=== PATIENT | female | born 1975 | race Caucasian/White ===

== ENCOUNTER → 2016-09-14 | Outpatient (CLI) | payer OTHER ==
--- NOTE | 2016-09-14 11:45 | XR ---
EXAMINATION TYPE: XR foot complete LT DATE OF EXAM: 09/14/2016 11:38 AM CLINICAL HISTORY: pain TECHNIQUE: Frontal, lateral and oblique images of the left foot are obtained. COMPARISON: None. FINDINGS: There is no acute fracture/dislocation evident. The joint spaces appear within normal [place] its. The overlying soft tissue appears unremarkable. IMPRESSION: There is no acute fracture or dislocation. ICD 10 NO FRACTURE, INITIAL EVALUATION
--- NOTE | 2016-09-14 11:46 | XR ---
EXAMINATION TYPE: XR ankle complete LT DATE OF EXAM: 09/14/2016 11:38 AM COMPARISON: NONE HISTORY: Pain TECHNIQUE: 3 views of the left ankle are submitted for evaluation. FINDINGS: There is no evidence for fracture or dislocation. Ankle mortise is intact. Soft tissues are within normal limits. IMPRESSION: 1. No evidence for acute fracture.
== END | disposition home or self-care (01) ==
LOC: RADXRMAIN 11:15
PROVIDERS: ATTEND Family Medicine
DX: M25.572 Pain in left ankle and joints of left foot (principal)

== ENCOUNTER → 2016-11-26 | Outpatient (CLI) | payer OTHER ==
--- NOTE | 2016-11-26 12:49 | EST ---
DATE OF SERVICE: 11/26/2016 STRESS TEST INDICATION: Family history, chest pain. BASELINE HEART RATE: 63 BASELINE BLOOD PRESSURE: 107/59 MAXIMUM HEART RATE: 168 MAXIMUM BLOOD PRESSURE: 149/83 85% MPHR: 154 100% MPHR: 181 METS: 15.0 MAXIMUM STAGE REACHED: IV TOTAL EXERCISE TIME: 13:00 Baseline EKG shows sinus rhythm, normal axis, normal intervals. Patient exercised on Willem protocol for a total of 13 minutes achieving 15 METS, 92% of predicted maximum heart rate without chest pain or diagnostic ST segment depression. CONCLUSION: 1. Excellent exercise tolerance. 2. Negative stress test by EKG criteria. MTDD
--- NOTE | 2016-11-26 16:59 | ECHOF ---
Referral Reason:Z82.49 fa hx of ischemic heart dis MEASUREMENTS -------- HEIGHT: 165.1 cm WEIGHT: 69.4 kg BP: 115/78 RVIDd: 2.9 cm (< 3.3) IVSd: 1.0 cm (0.6 - 1.1) LVIDd: 4.7 cm (3.9 - 5.3) LVPWd: 0.9 cm (0.6 - 1.1) IVSs: 1.3 cm LVIDs: 3.3 cm LVPWs: 1.4 cm LA Diam: 3.2 cm (2.7 - 3.8) LAESV Index (A-L): 22.51 ml/m Ao Diam: 2.6 cm (2.0 - 3.7) AV Cusp: 1.8 cm (1.5 - 2.6) MV EXCURSION: 15.228 mm (> 18.000) MV EF SLOPE: 83 mm/s (70 - 150) EPSS: 0.9 cm MV E Hilario: 1.14 m/s MV DecT: 267 ms MV A Hilario: 0.93 m/s MV E/A Ratio: 1.22 RAP: 5.00 mmHg RVSP: 28.98 mmHg FINDINGS -------- Sinus rhythm. This was a technically good study. The left ventricular size is normal. Left ventricular wall thickness is normal. Overall left ventricular systolic function is normal with, an EF between 60 - 65 %. The right ventricle is normal in size and function. Normal LA size by volume 22+/-6 ml/m2. The right atrium is normal in size. The aortic valve is trileaflet, and appears structurally normal. No aortic stenosis or regurgitation. The mitral valve is normal. There is trace mitral regurgitation. Mild tricuspid regurgitation present. There is mild pulmonary hypertension. The right ventricular systolic pressure, as measured by Doppler, is 28.98mmHg. The pulmonic valve is normal. The aortic root size is normal. The pericardium is normal. CONCLUSIONS -------- 1. Sinus rhythm. 2. The mitral valve is normal. 3. There is trace mitral regurgitation. 4. Mild tricuspid regurgitation present. 5. There is mild pulmonary hypertension. 6. The right ventricular systolic pressure, as measured by Doppler, is 28.98mmHg. 7. The pulmonic valve is normal. 8. The aortic root size is normal. 9. The pericardium is normal. 10. This was a technically good study. 11. The left ventricular size is normal. 12. Left ventricular wall thickness is normal. 13. Overall left ventricular systolic function is normal with, an EF between 60 - 65 %. 14. The right ventricle is normal in size and function. 15. Normal LA size by volume 22+/-6 ml/m2. 16. The right atrium is normal in size. 17. The aortic valve is trileaflet, and appears structurally normal. No aortic stenosis or regurgitation. CARD GRINDER HELPER: Zayra Jaramillo RDCS
== END | disposition home or self-care (01) ==
LOC: RADNMMAIN 10:59
PROVIDERS: ATTEND Internal Medicine Clinical Cardiac Electrophysiology
DX: I08.1 Rheumatic disorders of both mitral and tricuspid valves (principal); I27.2 Other secondary pulmonary hypertension; Z82.49 Family history of ischemic heart disease and other diseases of the circulatory system
CPT/HCPCS: 93017; 93306

== ENCOUNTER 2017-07-16 21:49 | Emergency (ER) | payer OTHER ==
--- NOTE | 2017-07-16 22:18 | ED ---
General Adult HPI - General Chief complaint: Extremity Injury, Lower Stated complaint: poss blood clot Time Seen by Provider: 07/16/17 22:07 Source: patient, RN notes reviewed Mode of arrival: ambulatory Limitations: no limitations - History of Present Illness Initial comments: 41-year-old female presents for evaluation of right calf pain and concern for DVT. Patient states she has had burning pain in her right lateral calf and thigh throughout the day today. She is an avid runner, denies any injury or overuse known to her. No trauma. Patient is currently on control, she has a history of hypercholesterolemia. No recent travel or long trips. She denies fever or chills. Denies cough or shortness of breath. - Related Data Home Medications Medication Instructions Recorded Confirmed Atorvastatin Calcium [Lipitor] 10 mg PO HS 11/19/13 08/08/15 Azurette 1 tab PO DAILY 11/19/13 08/08/15 Lorcaserin HCl [Belviq] 10 mg PO BID 11/19/13 08/08/15 Niacin [Niacin ER] 500 mg PO HS 11/19/13 08/08/15 Iron(Dosage Unknown) 1 tab PO DAILY 01/01/14 08/08/15 Previous Rx's Medication Instructions Recorded Famotidine [Pepcid] 40 mg PO BID #30 tab 08/08/15 hydrOXYzine HCL [Atarax] 25 mg PO TID #30 tab 08/08/15 predniSONE 50 mg PO DAILY #5 tab 08/08/15 Allergies Allergy/AdvReac Type Severity Reaction Status Date / Time guaifenesin [From Mucinex] Allergy Anaphylaxis Verified 07/16/17 22:02 minocycline [Minocycline] Allergy Anaphylaxis Verified 07/16/17 22:02 mucus relief Allergy Anaphylaxis Uncoded 07/16/17 22:02 Review of Systems ROS Statement: Those systems with pertinent positive or pertinent negative responses have been documented in the HPI. ROS Other: All systems not noted in ROS Statement are negative. Past Medical History Past Medical History: Hyperlipidemia Additional Past Medical History / Comment(s): HX BLEEDING FROM RECTUM., History of Any Multi-Drug Resistant Organisms: None Reported Past Surgical History: Adenoidectomy, Tonsillectomy Additional Past Surgical History / Comment(s): LAPAROTOMY; LAPAROSCOPIES; colonoscopy and EGD 11/19/13, Past Anesthesia/Blood Transfusion Reactions: Motion Sickness Past Psychological History: No Psychological Hx Reported Smoking Status: Never smoker Past Alcohol Use History: Occasional Past Drug Use History: None Reported General Exam Limitations: no limitations General appearance: alert, in no apparent distress Head exam: Present: atraumatic, normocephalic Eye exam: Present: normal appearance, PERRL Neck exam: Present: normal inspection. Absent: tenderness, meningismus Respiratory exam: Present: normal lung sounds bilaterally. Absent: respiratory distress, wheezes Cardiovascular Exam: Present: regular rate, normal rhythm GI/Abdominal exam: Present: soft. Absent: distended, tenderness Extremities exam: Present: normal inspection, full ROM, normal capillary refill , other (Right lower extremity, DP and PT pulses 2+, popliteal pulses 2+, compartments are soft. No external signs of trauma.). Absent: pedal edema, calf tenderness Neurological exam: Present: alert, oriented X3, CN II-XII intact. Absent: motor sensory deficit, reflexes normal Psychiatric exam: Present: normal affect, normal mood Skin exam: Present: warm, dry, intact. Absent: cyanosis, diaphoretic Course Vital Signs 07/16/17 07/16/17 21:59 23:34 Temperature 98.1 F Pulse Rate 70 70 Respiratory 17 14 Rate Blood Pressure 142/75 109/62 O2 Sat by Pulse 100 99 Oximetry Medical Decision Making - Medical Decision Making 41-year-old female presenting with Tenderness, concern for DVT. Ultrasound is obtained, this is negative for DVT or any significant acute findings. Patient is reassured, she will elevate the lower extremity, take Motrin for pain, follow -up with her primary care physician. Return with any worsening or changing symptoms. Disposition Clinical Impression: Muscle strain Disposition: HOME SELF-CARE Condition: Good Instructions: Muscle Strain (ED) Referrals: José Mott DO [Primary Care Provider] - 1-2 days Time of Disposition: 00:36
--- NOTE | 2017-07-17 00:34 | US ---
EXAMINATION TYPE: US venous doppler duplex LE RT DATE OF EXAM: 07/17/2017 12:24 AM COMPARISON: NONE CLINICAL HISTORY: Pain. Right leg pain SIDE PERFORMED: Right TECHNIQUE: The lower extremity deep venous system is examined utilizing real time linear array sonog ben with graded compression, doppler sonography and color-flow sonography. VESSELS IMAGED: External Iliac Vein (EIV) Common Femoral Vein Deep Femoral Vein Greater Saphenous Vein * Femoral Vein Popliteal Vein Small Saphenous Vein * Proximal Calf Veins (* superficial vessels) Right Leg: Appears negative for DVT, scanned right lateral lower leg area of concern: appears wnl IMPRESSION: No evidence of deep venous thrombosis in the right leg. No solid or cystic mass identifie d in the calf.
[2017-07-17 00:40] VITALS: BP 109/68; PULSE 68; RESP 18; TEMP 98.3
== END 2017-07-17 00:43 | disposition home or self-care (01) ==
LOC: EC 21:49
DX: S86.911A Strain of unspecified muscle(s) and tendon(s) at lower leg level, right leg, initial encounter (principal); E78.5 Hyperlipidemia, unspecified; Z79.3 Long term (current) use of hormonal contraceptives; Z79.899 Other long term (current) drug therapy; Z88.1 Allergy status to other antibiotic agents; Z88.8 Allergy status to other drugs, medicaments and biological substances; X58.XXXA Exposure to other specified factors, initial encounter
CPT/HCPCS: 99283

== ENCOUNTER 2017-09-06 09:25 | Emergency (ER) | payer OTHER ==
[2017-09-06 09:32] VITALS: RESP 18
--- NOTE | 2017-09-06 09:48 | ED ---
General Adult HPI - General Chief complaint: Chest Pain Stated complaint: Arm numbness and high heart zana Time Seen by Provider: 09/06/17 09:37 Source: patient, RN notes reviewed, old records reviewed Mode of arrival: wheelchair - History of Present Illness Initial comments: 41-year-old female presents for evaluation of chest pain. Patient's pain began yesterday evening while at rest, with central chest pain with some radiation to her left upper chest. She did have some dyspnea associated with this. She had left arm numbness and tingling. No weakness in the left arm. Patient states the pain did light up, this morning while at work she developed palpitations feeling like her heart was racing. She denied pain at that time. Had persistent left arm numbness. She admits she did feel anxious during this episode. She has no history of cardiac disease. No history DVT or PE. She has been eating and drinking normally. No history nausea vomiting or diarrhea. No diaphoresis. - Related Data Home Medications Medication Instructions Recorded Confirmed Atorvastatin Calcium [Lipitor] 10 mg PO HS 11/19/13 09/06/17 Azurette 1 tab PO HS 11/19/13 09/06/17 Niacin [Niacin ER] 500 mg PO HS 11/19/13 09/06/17 Cetirizine HCl [Zyrtec] 10 mg PO HS 09/06/17 09/06/17 Topiramate [Topamax] 25 mg PO HS 09/06/17 09/06/17 Allergies Allergy/AdvReac Type Severity Reaction Status Date / Time guaifenesin [From Mucinex] Allergy Anaphylaxis Verified 09/06/17 10:19 minocycline [Minocycline] Allergy Anaphylaxis Verified 09/06/17 10:19 mucus relief Allergy Anaphylaxis Uncoded 09/06/17 09:32 Review of Systems ROS Statement: Those systems with pertinent positive or pertinent negative responses have been documented in the HPI. ROS Other: All systems not noted in ROS Statement are negative. Past Medical History Past Medical History: Hyperlipidemia Additional Past Medical History / Comment(s): HX BLEEDING FROM RECTUM., History of Any Multi-Drug Resistant Organisms: None Reported Past Surgical History: Adenoidectomy, Tonsillectomy Additional Past Surgical History / Comment(s): LAPAROTOMY; LAPAROSCOPIES; colonoscopy and EGD 11/19/13, Past Anesthesia/Blood Transfusion Reactions: Motion Sickness Past Psychological History: No Psychological Hx Reported Smoking Status: Never smoker Past Alcohol Use History: Occasional Past Drug Use History: None Reported General Exam General appearance: alert, in no apparent distress Head exam: Present: atraumatic, normocephalic Eye exam: Present: normal appearance, PERRL, EOMI Neck exam: Present: normal inspection. Absent: tenderness, meningismus Respiratory exam: Present: normal lung sounds bilaterally. Absent: respiratory distress, wheezes Cardiovascular Exam: Present: regular rate, normal rhythm, normal heart sounds GI/Abdominal exam: Present: soft. Absent: distended, tenderness, guarding Extremities exam: Present: normal inspection, normal capillary refill, other ( Left radial pulse is 2+.). Absent: pedal edema, calf tenderness Back exam: Present: full ROM Neurological exam: Present: alert, oriented X3, CN II-XII intact. Absent: motor sensory deficit Psychiatric exam: Present: normal affect, normal mood Skin exam: Present: warm, dry, intact. Absent: cyanosis, diaphoretic Course Vital Signs 09/06/17 09/06/17 09:28 10:43 Temperature 98.5 F Pulse Rate 96 79 Respiratory 18 18 Rate Blood Pressure 138/76 120/65 O2 Sat by Pulse 100 100 Oximetry Medical Decision Making - Medical Decision Making 41-year-old female with chest pain, palpitations, and left arm tingling. Patient is accompanied by her coworker who is concerned that this may be related to stress and anxiety. They were out work today when her symptoms worsened. Pain is been present since yesterday, EKG shows no ischemic changes. Patient is otherwise healthy, she is quite athletic. She is a nonsmoker nondiabetic. She does have good primary care follow-up. Laboratory studies reveal normal white blood cell count, stable hemoglobin. D-dimer is negative. Electrolytes within normal limits. Troponin is negative. Given the negative troponin and duration of symptoms I am reassured that this is not cardiac in nature. Chest x-ray negative for any focal airspace disease. Patient will return with worsening or changing symptoms. She will follow-up with her primary care physician. She is comfortable with this plan. Heart score:1 - Lab Data Result diagrams: 09/06/17 09:50 09/06/17 09:50 Lab Results 09/06/17 09/06/17 09/06/17 Range/Units 09:50 09:50 09:50 WBC 6.2 (3.8-10.6) k/uL RBC 4.56 (3.80-5.40) m/uL Hgb 13.5 (11.4-16.0) gm/dL Hct 38.7 (34.0-46.0) % MCV 84.9 (80.0-100.0) fL MCH 29.7 (25.0-35.0) pg MCHC 34.9 (31.0-37.0) g/dL RDW 12.8 (11.5-15.5) % Plt Count 287 (150-450) k/uL Neutrophils % 55 % Lymphocytes % 34 % Monocytes % 5 % Eosinophils % 2 % Basophils % 1 % Neutrophils # 3.4 (1.3-7.7) k/uL Lymphocytes # 2.1 (1.0-4.8) k/uL Monocytes # 0.3 (0-1.0) k/uL Eosinophils # 0.1 (0-0.7) k/uL Basophils # 0.0 (0-0.2) k/uL PT (9.0-12.0) sec INR (<1.2) APTT (22.0-30.0) sec D-Dimer (<0.60) mg/L FEU Sodium 144 (137-145) mmol/L Potassium 4.1 (3.5-5.1) mmol/L Chloride 110 H (98-107) mmol/L Carbon Dioxide 19 L (22-30) mmol/L Anion Gap 15 mmol/L BUN 14 (7-17) mg/dL Creatinine 0.69 (0.52-1.04) mg/dL Est GFR (CKD-EPI)AfAm >90 (>60 ml/min/1.73 sqM) Est GFR (CKD-EPI)NonAf >90 (>60 ml/min/1.73 sqM) Glucose 99 (74-99) mg/dL Calcium 9.1 (8.4-10.2) mg/dL Magnesium 2.1 (1.6-2.3) mg/dL Total Bilirubin 0.3 (0.2-1.3) mg/dL AST 17 (14-36) U/L ALT 22 (9-52) U/L Alkaline Phosphatase 43 (38-126) U/L Total Creatine Kinase 69 (30-135) U/L CK-MB (CK-2) 0.2 (0.0-2.4) ng/mL CK-MB (CK-2) Rel Index 0.3 Troponin I <0.012 (0.000-0.034) ng/mL Total Protein 6.6 (6.3-8.2) g/dL Albumin 3.9 (3.5-5.0) g/dL 09/06/17 Range/Units 09:50 WBC (3.8-10.6) k/uL RBC (3.80-5.40) m/uL Hgb (11.4-16.0) gm/dL Hct (34.0-46.0) % MCV (80.0-100.0) fL MCH (25.0-35.0) pg MCHC (31.0-37.0) g/dL RDW (11.5-15.5) % Plt Count (150-450) k/uL Neutrophils % % Lymphocytes % % Monocytes % % Eosinophils % % Basophils % % Neutrophils # (1.3-7.7) k/uL Lymphocytes # (1.0-4.8) k/uL Monocytes # (0-1.0) k/uL Eosinophils # (0-0.7) k/uL Basophils # (0-0.2) k/uL PT 9.4 (9.0-12.0) sec INR 0.9 (<1.2) APTT 22.6 (22.0-30.0) sec D-Dimer 0.44 (<0.60) mg/L FEU Sodium (137-145) mmol/L Potassium (3.5-5.1) mmol/L Chloride (98-107) mmol/L Carbon Dioxide (22-30) mmol/L Anion Gap mmol/L BUN (7-17) mg/dL Creatinine (0.52-1.04) mg/dL Est GFR (CKD-EPI)AfAm (>60 ml/min/1.73 sqM) Est GFR (CKD-EPI)NonAf (>60 ml/min/1.73 sqM) Glucose (74-99) mg/dL Calcium (8.4-10.2) mg/dL Magnesium (1.6-2.3) mg/dL Total Bilirubin (0.2-1.3) mg/dL AST (14-36) U/L ALT (9-52) U/L Alkaline Phosphatase (38-126) U/L Total Creatine Kinase (30-135) U/L CK-MB (CK-2) (0.0-2.4) ng/mL CK-MB (CK-2) Rel Index Troponin I (0.000-0.034) ng/mL Total Protein (6.3-8.2) g/dL Albumin (3.5-5.0) g/dL Disposition Clinical Impression: Chest pain, Palpitation Disposition: HOME SELF-CARE Condition: Good Instructions: Chest Pain (ED), Palpitations (ED) Is patient prescribed a controlled substance at discharge?: No Referrals: José Mott DO [Primary Care Provider] - 1-2 days Óscar Terry MD [STAFF PHYSICIAN] - 1-2 days Time of Disposition: 11:15
--- NOTE | 2017-09-06 10:12 | XR ---
EXAMINATION TYPE: XR chest 2V DATE OF EXAM: 09/06/2017 COMPARISON: Chest x-ray May 26, 2013. CTA chest May 27, 2013. HISTORY: Chest pain with numbness down right arm. TECHNIQUE: Frontal and lateral views of the chest are obtained. FINDINGS: There is no focal air space opacity, pleural effusion, or pneumothorax seen. The cardiac silhouette size is within normal limits. The osseous structures are intact. IMPRESSION: No acute cardiopulmonary process. No significant change from prior.
[2017-09-06 10:26] LABS: ALT 22 U/L (9-52); AST 17 U/L (14-36); Albumin 3.9 g/dL (3.5-5.0); Alkaline Phosphatase 43 U/L (38-126); Anion Gap 15 mmol/L; Basophils % (A) 1 %; Blood Urea Nitrogen 14 mg/dL (7-17); Calcium 9.1 mg/dL (8.4-10.2); Carbon Dioxide 19 mmol/L (22-30); Chloride 110 mmol/L (98-107); Eosinophils # (A) 0.1 k/uL (0-0.7); Eosinophils % (A) 2 %; Glucose 99 mg/dL (74-99); HCT 38.7 % (34.0-46.0); HGB 13.5 gm/dL (11.4-16.0); Lymphocytes # (A) 2.1 k/uL (1.0-4.8); Lymphocytes % (A) 34 %; MCH 29.7 pg (25.0-35.0); MCHC 34.9 g/dL (31.0-37.0); MCV 84.9 fL (80.0-100.0); Magnesium 2.1 mg/dL (1.6-2.3); Mean Platelet Volume 8.6; Monocytes # (A) 0.3 k/uL (0-1.0); Monocytes % (A) 5 %; Neutrophils # (A) 3.4 k/uL (1.3-7.7); Neutrophils % (A) 55 %; Platelet Count 287 k/uL (150-450); Potassium 4.1 mmol/L (3.5-5.1); RBC 4.56 m/uL (3.80-5.40); RDW 12.8 % (11.5-15.5); Sodium 144 mmol/L (137-145); Total Bilirubin 0.3 mg/dL (0.2-1.3); Total Protein 6.6 g/dL (6.3-8.2); WBC 6.2 k/uL (3.8-10.6)
[2017-09-06 10:32] LABS: D-Dimer 0.44 mg/L FEU (<0.60); INR 0.9 (<1.2); Partial Thromboplastin Time 22.6 sec (22.0-30.0); Prothrombin Time 9.4 sec (9.0-12.0)
[2017-09-06 10:42] LABS: Creatine Kinase 69 U/L (30-135)
[2017-09-06 10:55] LABS: Creatine Kinase MB 0.2 ng/mL (0.0-2.4); Troponin I <0.012 ng/mL (0.000-0.034)
[2017-09-06 11:28] VITALS: BP 122/64; PULSE 74; TEMP 98
== END 2017-09-06 11:28 | disposition home or self-care (01) ==
LOC: EC 09:25
DX: R07.9 Chest pain, unspecified (principal); R00.2 Palpitations; R20.0 Anesthesia of skin; R06.00 Dyspnea, unspecified; E78.5 Hyperlipidemia, unspecified; Z79.899 Other long term (current) drug therapy; Z88.1 Allergy status to other antibiotic agents; Z88.8 Allergy status to other drugs, medicaments and biological substances
CPT/HCPCS: 36415; 71046; 80053; 82550; 82553; 83735; 84484; 85025; 85379; 85610; 85730; 93005; 99285

== ENCOUNTER → 2018-02-24 | Outpatient (CLI) | payer OTHER ==
--- NOTE | 2018-02-27 11:05 | MM ---
Reason for exam: screening (asymptomatic). Last mammogram was performed 2 years and 1 month ago. History: Took hormonal contraceptives for 25 years. Physical Findings: A clinical breast exam by your physician is recommended on an annual basis and results should be correlated with mammographic findings. MG 3D Screening Mammo W/Cad Bilateral CC and MLO view(s) were taken. Prior study comparison: February 02, 2016, bilateral MG screening mammo w CAD. August 12, 1998, bilateral diagnostic mammogram. The breast tissue is heterogeneously dense. This may lower the sensitivity of mammography. No suspicious abnormality on the right breast. There is a far posterior depth left medial asymmetry, increased in size from the prior. ASSESSMENT: Incomplete: need additional imaging evaluation, BI-RAD 0 RECOMMENDATION: Special view mammogram of the left breast. If lesion persists on supplemental views, image directed ultrasound is recommended. [facility] will attempt to contact patient to return for supplemental views and ultrasound if indicated.
== END | disposition home or self-care (01) ==
LOC: RADMAMWWP 07:54
PROVIDERS: ATTEND Obstetrics & Gynecology
DX: Z12.31 Encounter for screening mammogram for malignant neoplasm of breast (principal)
CPT/HCPCS: 77063; 77067

== ENCOUNTER → 2018-02-28 | Outpatient (CLI) | payer OTHER ==
--- NOTE | 2018-03-01 08:18 | MM ---
Reason for exam: additional evaluation requested from abnormal screening. Last mammogram was performed less than 1 month ago. History: Took hormonal contraceptives for 25 years. Physical Findings: Nurse did not find any significant physical abnormalities on exam. MG 3D Work Up W/Cad LT Spot compression CC, spot compression XCCM, and LM view(s) were taken of the left breast. Prior study comparison: February 24, 2018, bilateral MG 3d screening mammo w/cad. February 02, 2016, bilateral MG screening mammo w CAD. Finding: There is a 9 mm circumscribed round mass in the inner quadrant, posterior position of the left breast persits on additional views. These results were verbally communicated with the patient and result sheet given to the patient on 02/28/18. ASSESSMENT: Incomplete: need additional imaging evaluation, BI-RAD 0 RECOMMENDATION: Ultrasound of the left breast.
--- NOTE | 2018-03-01 08:20 | USB ---
Reason for exam: additional evaluation requested from abnormal screening. History: Took hormonal contraceptives for 25 years. US Breast Workup Limited LT Left limited breast ultrasound including focal area of concern, retroareolar and axilla demonstrates a 0.4 x 0.4 x 0.2cm oval, cystic lesion at 12 o'clock, not felt to correspond to mammographic abnormality. Questionable prominant lobule zone B/C. These results were verbally communicated with the patient and result sheet given to the patient on 02/28/18. ASSESSMENT: Probably benign, BI-RAD 3 RECOMMENDATION: Follow-up diagnostic mammogram and ultrasound of the left breast in 6 months.
== END | disposition home or self-care (01) ==
LOC: RADMAMWWP 14:12
PROVIDERS: ATTEND Obstetrics & Gynecology
DX: R92.8 Other abnormal and inconclusive findings on diagnostic imaging of breast (principal)
CPT/HCPCS: 77061; 77065

== ENCOUNTER → 2018-08-28 | Outpatient (CLI) | payer OTHER ==
--- NOTE | 2018-08-28 09:51 | MM ---
Reason for exam: follow-up at short interval from prior study. Last mammogram was performed 6 months ago. History: Took hormonal contraceptives for 25 years. Physical Findings: Nurse did not find any significant physical abnormalities on exam. MG 3D Diag Mammo W/Cad LT CC, MLO, and XCCL view(s) were taken of the left breast. Prior study comparison: February 24, 2018, bilateral MG 3d screening mammo w/cad. February 02, 2016, bilateral MG screening mammo w CAD. No significant new findings when compared with previous films. These results were verbally communicated with the patient and result sheet given to the patient on 08/28/18. ASSESSMENT: Negative, BI-RAD 1 RECOMMENDATION: Follow-up diagnostic mammogram of both breasts in 6 months. Back on schedule.
--- NOTE | 2018-08-28 09:52 | USB ---
Reason for exam: follow-up at short interval from prior study. History: Took hormonal contraceptives for 25 years. US Breast LT Left complete breast ultrasound includes all four quadrants, the retroareolar region and axilla. Finding demonstrates a 0.4 x 0.3 x 0.4cm cystic lesion at 12 o'clock. These results were verbally communicated with the patient and result sheet given to the patient on 08/28/18. ASSESSMENT: Probably benign, BI-RAD 3 RECOMMENDATION: Ultrasound of the left breast in 6 months.
== END ==
LOC: RADMAMWWP 08:14
PROVIDERS: ATTEND Obstetrics & Gynecology
DX: R92.8 Other abnormal and inconclusive findings on diagnostic imaging of breast (principal)
CPT/HCPCS: 77061; 77065

== ENCOUNTER → 2018-11-17 | Outpatient (CLI) | payer OTHER ==
[2018-11-17 15:50] LABS: LDL Cholesterol,Calculated 101.8 mg/dL (0.0-131.0); VLDL Calculation 24.2 mg/dL (5.00-40.00)
[2018-11-17 16:00] LABS: T4, Free (Free Thyroxine) 1.1 ng/dL (0.80-1.80)
== END | disposition home or self-care (01) ==
LOC: LABWHC1 09:37
DX: E78.5 Hyperlipidemia, unspecified (principal); R00.2 Palpitations
CPT/HCPCS: 36415; 80061; 84439; 84443; 84481

== ENCOUNTER → 2019-03-23 | Outpatient (CLI) | payer OTHER ==
--- NOTE | 2019-03-26 11:45 | MM ---
Reason for exam: additional evaluation requested from prior study. Last mammogram was performed 7 months ago. History: Taking hormonal contraceptives for 25 years. Physical Findings: Nurse did not find any significant physical abnormalities on exam. MG 3D Diag Mammo W/Cad HUBERT Bilateral CC and MLO view(s) were taken. Prior study comparison: August 28, 2018, left breast MG 3d diag mammo w/cad LT. February 28, 2018, left breast MG 3d work up w/cad LT. The breast tissue is heterogeneously dense. This may lower the sensitivity of mammography. No suspicious abnormality. No significant new findings when compared with previous films. These results were verbally communicated with the patient and result sheet given to the patient on 03/23/19. ASSESSMENT: Negative, BI-RAD 1 RECOMMENDATION: Routine screening mammogram of both breasts in 1 year.
--- NOTE | 2019-03-26 11:49 | USB ---
Reason for exam: additional evaluation requested from prior study. History: Taking hormonal contraceptives for 25 years. US Breast Limited LT Left limited breast ultrasound including focal area of concern, retroareolar and axilla demonstrates a 0.3 x 0.2 x 0.3cm cystic lesion at 12 o'clock appears entirely cystic (prior 0.4 x 0.3 x 0.4cm). Dense tissue throughout. These results were verbally communicated with the patient and result sheet given to the patient on 03/23/19. ASSESSMENT: Benign, BI-RAD 2 RECOMMENDATION: Routine screening mammogram of both breasts in 1 year.
== END | disposition home or self-care (01) ==
LOC: RADMAMWWP 13:26
PROVIDERS: ATTEND Obstetrics & Gynecology
DX: R92.8 Other abnormal and inconclusive findings on diagnostic imaging of breast (principal)
CPT/HCPCS: 77062; 77066

== ENCOUNTER 2019-06-22 21:54 | Emergency (ER) | payer OTHER ==
[2019-06-22 22:01] VITALS: TEMP 98
[2019-06-22] MEDS ORDERED: methylPREDNISolone SOD SUCCI 125 MG/2 ML VIAL IV STA (22:20)
[2019-06-22] MEDS ORDERED: FAMOTIDINE 20 MG/2 ML VIAL IV STA (22:20)
[2019-06-22] MEDS ORDERED: SODIUM CHLORIDE 0.9% 500 ML 500 ML IV ONE (22:20)
[2019-06-22] MEDS ORDERED: diphenhydrAMINE 50 MG/ML 1 ML VIAL IVP STA (22:20)
[2019-06-22] MEDS ORDERED: diphenhydrAMINE 50 MG CAP PO STA (23:53)
--- NOTE | 2019-06-22 23:53 | ED ---
General Adult HPI - General Chief complaint: Recheck/Abnormal Lab/Rx Stated complaint: Medication Reaction Time Seen by Provider: 06/22/19 22:09 Source: patient Mode of arrival: ambulatory Limitations: no limitations - History of Present Illness Initial comments: 43 year-old patient presents to the emergency department today for evaluation of possible ALLERGIC reaction. Patient states she was started on cefuroxime by ENT specialist for laryngitis and vocal cord swelling. Patient states that she took the first tablet around 5 PM and around 8 PM started to feel ill. States that she had a hot feeling throughout her body and an episode of diarrhea. Patient states she has had anaphylaxis to multiple drugs in the past and states her symptoms started the same. She denies any lip, tongue, or throat swelling. Denies any rash or itching. Patient denies taking any medication for her symptoms. Patient denies any recent rash, fever, chills, chest pain, abdominal pain, nausea, vomiting, diarrhea, constipation, back pain, numbness, tingling, dizziness, weakness, hematuria, dysuria, urinary urgency, urinary frequency, headache, visual changes, or any other complaints. - Related Data Home Medications Medication Instructions Recorded Confirmed Atorvastatin Calcium [Lipitor] 10 mg PO HS 11/19/13 09/06/17 Azurette 1 tab PO HS 11/19/13 09/06/17 Niacin [Niacin ER] 500 mg PO HS 11/19/13 09/06/17 Cetirizine HCl [Zyrtec] 10 mg PO HS 09/06/17 09/06/17 Topiramate [Topamax] 25 mg PO HS 09/06/17 09/06/17 Previous Rx's Medication Instructions Recorded Famotidine [Pepcid] 20 mg PO DAILY #5 tablet 06/22/19 Allergies Allergy/AdvReac Type Severity Reaction Status Date / Time cefuroxime Allergy Unknown Verified 06/22/19 22:35 guaifenesin [From Mucinex] Allergy Anaphylaxis Verified 06/22/19 22:01 minocycline [Minocycline] Allergy Anaphylaxis Verified 06/22/19 22:01 mucus relief Allergy Anaphylaxis Uncoded 06/22/19 22:01 Review of Systems ROS Statement: Those systems with pertinent positive or pertinent negative responses have been documented in the HPI. ROS Other: All systems not noted in ROS Statement are negative. Past Medical History Past Medical History: Hyperlipidemia Additional Past Medical History / Comment(s): HX BLEEDING FROM RECTUM., History of Any Multi-Drug Resistant Organisms: None Reported Past Surgical History: Adenoidectomy, Tonsillectomy Additional Past Surgical History / Comment(s): LAPAROTOMY; LAPAROSCOPIES; colonoscopy and EGD 11/19/13, Past Anesthesia/Blood Transfusion Reactions: Motion Sickness Past Psychological History: No Psychological Hx Reported Smoking Status: Never smoker Past Alcohol Use History: Occasional Past Drug Use History: None Reported General Exam Limitations: no limitations General appearance: alert, in no apparent distress, other (This is a well- developed, well-nourished adult female patient in no acute distress. Vital signs upon presentation are temperature 98.0F, pulse 97, respirations 20, blood pressure 148/98, pulse ox 99% on room air.) Eye exam: Present: normal appearance, PERRL, EOMI. Absent: scleral icterus, conjunctival injection, periorbital swelling ENT exam: Present: normal exam, normal oropharynx, mucous membranes moist Respiratory exam: Present: normal lung sounds bilaterally. Absent: respiratory distress, wheezes, rales, rhonchi, stridor Cardiovascular Exam: Present: regular rate, normal rhythm, normal heart sounds. Absent: systolic murmur, diastolic murmur, rubs, gallop, clicks GI/Abdominal exam: Present: soft, normal bowel sounds. Absent: distended, tenderness, guarding, rebound, rigid Neurological exam: Present: alert, oriented X3, CN II-XII intact Psychiatric exam: Present: normal affect, normal mood Skin exam: Present: warm, dry, intact, normal color. Absent: rash Course Vital Signs 06/22/19 06/23/19 21:58 00:09 Temperature 98.0 F 98.0 F Pulse Rate 97 71 Respiratory 20 18 Rate Blood Pressure 148/98 117/75 O2 Sat by Pulse 99 98 Oximetry Medical Decision Making - Medical Decision Making 43-year-old female patient percents to the emergency department today for evaluation of possible ALLERGIC reaction. Patient was given cefuroxime for laryngeal infection. Patient symptoms included a hot feeling throughout her body and an episode of diarrhea. Patient was given IV Benadryl, Solu-Medrol, Pepcid. Upon reevaluation she does report improvement of symptoms. We did monitor for a period of time. She'll be discharged to follow-up with her primary care physician for recheck in 1-2 days. We will continue Pepcid, she started taking steroids. She is instructed take Benadryl every 6 hours. She is instructed to call her ENT specialist on Tuesday to have her antibiotics switched. Return parameters discussed in detail. She verbalizes understanding and agrees with this plan. Disposition Clinical Impression: Allergic reaction Disposition: HOME SELF-CARE Condition: Good Instructions (If sedation given, give patient instructions): General Allergic Reaction (ED) Additional Instructions: Take next dose of Benadryl at 5:00 AM. Follow-up with Dr. Ruggiero for further evaluation on Tuesday, call the office to see if he wants to switch her antibiotic. Return to the emergency department immediately if your symptoms change or worsen. Prescriptions: Famotidine [Pepcid] 20 mg PO DAILY #5 tablet Is patient prescribed a controlled substance at d/c from ED?: No Referrals: José Mott DO [Primary Care Provider] - 1-2 days Time of Disposition: 23:53
[2019-06-23 00:10] VITALS: BP 117/75; PULSE 71; RESP 18
== END 2019-06-23 00:10 | disposition home or self-care (01) ==
LOC: EC 21:54
DX: R19.7 Diarrhea, unspecified (principal); T50.905A Adverse effect of unspecified drugs, medicaments and biological substances, initial encounter; J38.7 Other diseases of larynx; E78.5 Hyperlipidemia, unspecified; Z79.899 Other long term (current) drug therapy; Z88.1 Allergy status to other antibiotic agents; Z88.8 Allergy status to other drugs, medicaments and biological substances
CPT/HCPCS: 99283; 96374; 96375 ×2; 96361 ×2; J1200; J2930

== ENCOUNTER 2019-11-27 13:23 | Observation (INO) | payer OTHER ==
[2019-11-27] MEDS ORDERED: NITROGLYCERIN SL TABS 0.4 MG TAB SUBLINGUAL STA (14:14)
[2019-11-27] MEDS ORDERED: LORazepam 1 MG TAB PO STA (14:14)
[2019-11-27] MEDS ORDERED: ASPIRIN 81 MG PO STA (14:14)
[2019-11-27] MEDS ORDERED: SODIUM CHLORIDE 0.9% 500 ML 500 ML IV STA (14:14)
--- NOTE | 2019-11-27 14:35 | ED ---
General Adult HPI - General Source: patient, RN notes reviewed, old records reviewed Mode of arrival: ambulatory Limitations: no limitations <Mayco Doan - Last Filed: 11/27/19 16:47> <Meagan Martínez - Last Filed: 12/03/19 00:29> - General Chief complaint: Chest Pain Stated complaint: Chest Pain Time Seen by Provider: 11/27/19 14:01 - History of Present Illness Initial comments: 44-year-old female patient with past history of hyperlipidemia, presents to ED for multiple complaints. Patient reports that for the last 4 days she has been having substernal chest pain. Describes as a dull pain. She reports that her heart is also been racing. States that she took her pulse at home earlier in the day and it was 120 she was also sweating at the time. She reports that she has been having a foreign body sensation in her throat. Reports she has been having a productive cough. Negative fevers. Denies a chance of being . Reports that the foreign body sensation in throat which has been going on for 4 days has her feeling mildly short of breath as well. She states that she has been very anxious since the start of covered and does believe that this could potentially be anxiety related. Pt states that she had a mild headache earlier in the day that resolved with tylenol. she denies any red flag s/sx. Systemic: Pt denies fatigue, fever/chills, rash. Pt denies weakness, night sweats, weight loss. Neuro: Pt denies headache, visual disturbances, syncope or pre-syncope. HEENT: Pt denies ocular discharge or irritation, otalgia, rhinorrhea, pharyngitis or notable lymphadenopathy. Cardiopulmonary: Pt denies SOB, heart palpitations, dyspnea on exertion. Abdominal/GI: Pt denies abdominal pain, n/v/d. : Pt denies dysuria, burning w/ urination, frequency/urgency. Denies new onset urinary or bowel incontinence. MSK: Pt denies myalgia, loss of strength or function in extremities. Neuro: Pt denies new onset weakness, paresthesias. (Mayco Doan) - Related Data Home Medications Medication Instructions Recorded Confirmed Atorvastatin Calcium [Lipitor] 10 mg PO HS 11/19/13 11/27/19 Ascorbic Acid [Vitamin C] 1,000 mg PO HS 11/27/19 11/27/19 Cholecalciferol [Vitamin D3 (25 2,000 unit PO HS 11/27/19 11/27/19 Mcg = 1000 Iu)] Citalopram Hydrobromide 20 mg PO HS 11/27/19 11/27/19 [Citalopram HBr] Desog-E.estradiol/E.estradiol 1 each PO HS 11/27/19 11/27/19 [Azurette 28 Day Tablet] Fish Oil/Dha/Epa [Fish Oil 1,200 1 cap PO HS 11/27/19 11/27/19 mg Fish Oil] Loratadine 10 mg PO HS 11/27/19 11/27/19 Omeprazole [PriLOSEC] 40 mg PO HS 11/27/19 11/27/19 Topiramate [Topamax] 50 mg PO 11/27/19 11/27/19 Allergies Allergy/AdvReac Type Severity Reaction Status Date / Time cefuroxime Allergy Unknown Verified 11/27/19 16:11 guaifenesin [From Mucinex] Allergy Anaphylaxis Verified 11/27/19 16:11 minocycline [Minocycline] Allergy Anaphylaxis Verified 11/27/19 16:11 mucus relief Allergy Anaphylaxis Uncoded 11/27/19 13:27 Review of Systems ROS Other: All systems not noted in ROS Statement are negative. <Mayco Doan - Last Filed: 11/27/19 16:47> ROS Other: All systems not noted in ROS Statement are negative. <Meagan Martínez - Last Filed: 12/03/19 00:29> ROS Statement: Those systems with pertinent positive or pertinent negative responses have been documented in the HPI. Past Medical History Past Medical History: Hyperlipidemia Additional Past Medical History / Comment(s): HX BLEEDING FROM RECTUM., History of Any Multi-Drug Resistant Organisms: None Reported Past Surgical History: Adenoidectomy, Tonsillectomy Additional Past Surgical History / Comment(s): LAPAROTOMY; LAPAROSCOPIES; colonoscopy and EGD 11/19/13, Past Anesthesia/Blood Transfusion Reactions: Motion Sickness Past Psychological History: No Psychological Hx Reported Smoking Status: Never smoker Past Alcohol Use History: Occasional Past Drug Use History: None Reported <Mayco Doan - Last Filed: 11/27/19 16:47> General Exam Limitations: no limitations <Mayco Doan - Last Filed: 11/27/19 16:47> - General Exam Comments Initial Comments: Constitutional: NAD, AOX3, Pt has pleasant affect. HEENT: NC/AT, trachea midline, neck supple, no lymphadenopathy. Posterior pharynx non erythematous, without exudates. External ears appear normal, without discharge. Mucous membranes moist. Eyes PERRLA, EOM intact. There is no scleral icterus. No pallor noted. Cardiopulmonary: RRR, no murmurs, rubs or gallops, no JVD noted. Lungs CTAB in anterior and posterior gasca. No peripheral edema. Abdominal exam: Abdomen soft and non-distended. Abdomen non-tender to palpation in all 4 quadrants. Bowel sounds active in LLQ. No hepatosplenomegaly. No ecchymosis Neuro: CN II-XII intact. No nuchal rigidity. No raccon eyes, no flor sign, no hemotympanum. No cervical spinal tenderness. MSK: No posterior calf tenderness bilaterally, homans sign negative bilaterally. Posterior tibialis and radial pulse +2 bilaterally. Sensation intact in upper and lower extremities. Full active ROM in upper and lower extremities. (Mayco Doan) Course Vital Signs 11/27/19 11/27/19 11/27/19 13:27 14:42 15:18 Temperature 98.3 F 98.7 F Pulse Rate 84 103 H 97 Respiratory 16 16 16 Rate Blood Pressure 139/84 113/74 119/76 O2 Sat by Pulse 98 98 99 Oximetry 11/27/19 17:44 Temperature Pulse Rate 75 Respiratory 16 Rate Blood Pressure 111/74 O2 Sat by Pulse 99 Oximetry Medical Decision Making - Lab Data Result diagrams: 11/27/19 14:39 11/27/19 14:39 - EKG Data -: EKG Interpreted by Me (and Dr. Martínez ) <Mayco Doan - Last Filed: 11/27/19 16:47> - Lab Data Result diagrams: 11/27/19 14:39 11/27/19 14:39 <Meagan Martínez - Last Filed: 12/03/19 00:29> - Medical Decision Making 44-year-old female patient with past history of hyperlipidemia, presents to ED for multiple complaints. Patient reports that for the last 4 days she has been having substernal chest pain. Describes as a dull pain. She reports that her heart is also been racing. States that she took her pulse at home earlier in the day and it was 120 she was also sweating at the time. She reports that she has been having a foreign body sensation in her throat. Reports she has been having a productive cough. Negative fevers. Denies a chance of being . Reports that the foreign body sensation in throat which has been going on for 4 days has her feeling mildly short of breath as well. She states that she has been very anxious since the start of covered and does believe that this could potentially be anxiety related. Pt states that she had a mild headache earlier in the day that resolved with tylenol. she denies any red flag s/sx. physical exam did not display acute pathology. Posterior pharynx is nonerythematous. Cardiopulmonary Exam is benign. Laboratory investigations reveal noncompressive CBC. CMP does reveal mild hypokalemia and decreased carbon dioxide. Potassium was supplemented. D-dimer 0.39 troponin negative. UA negative. Soft tissue neck and chest did not display any acute process. EKG does display nonspecific changes. Patient admitted for serial troponins and cardiology as well as ENT evaluation. Case discussed with Dr. Martínez. (Mayco Doan) I was available for consultation in the emergency department. The history and physical exam were done by the midlevel provider. I was consulted for this patients care. I reviewed the case with the midlevel provider and based on their presentation of the patient, I agree with the assessment, medical decision making and plan of care as documented. Chart was dictated using [employer] dictation software. Attempts were made to correct any dictation errors however some typographical errors may persist. Patient was seen during a national state of emergency due to the Covid-19 pandemic. (Meagan Martínez) - Lab Data Lab Results 11/27/19 11/27/19 11/27/19 Range/Units 14:39 14:39 14:39 WBC 8.0 (3.8-10.6) k/uL RBC 4.54 (3.80-5.40) m/uL Hgb 14.1 (11.4-16.0) gm/dL Hct 39.8 (34.0-46.0) % MCV 87.6 (80.0-100.0) fL MCH 31.0 (25.0-35.0) pg MCHC 35.4 (31.0-37.0) g/dL RDW 13.2 (11.5-15.5) % Plt Count 293 (150-450) k/uL Neutrophils % 73 % Lymphocytes % 19 % Monocytes % 6 % Eosinophils % 1 % Basophils % 0 % Neutrophils # 5.8 (1.3-7.7) k/uL Lymphocytes # 1.5 (1.0-4.8) k/uL Monocytes # 0.5 (0-1.0) k/uL Eosinophils # 0.1 (0-0.7) k/uL Basophils # 0.0 (0-0.2) k/uL PT 9.5 (9.0-12.0) sec INR 0.9 (<1.2) APTT 21.8 L (22.0-30.0) sec D-Dimer 0.39 (<0.60) mg/L FEU Sodium 139 (137-145) mmol/L Potassium 3.3 L (3.5-5.1) mmol/L Chloride 111 H (98-107) mmol/L Carbon Dioxide 17 L (22-30) mmol/L Anion Gap 11 mmol/L BUN 7 (7-17) mg/dL Creatinine 0.62 (0.52-1.04) mg/dL Est GFR (CKD-EPI)AfAm >90 (>60 ml/min/1.73 sqM) Est GFR (CKD-EPI)NonAf >90 (>60 ml/min/1.73 sqM) Glucose 128 H (74-99) mg/dL Lactic Ac Sepsis Rflx Plasma Lactic Acid Grabiel (0.7-2.0) mmol/L Calcium 9.5 (8.4-10.2) mg/dL Magnesium 2.2 (1.6-2.3) mg/dL Total Bilirubin 0.3 (0.2-1.3) mg/dL AST 25 (14-36) U/L ALT 15 (4-34) U/L Alkaline Phosphatase 48 (38-126) U/L Troponin I (0.000-0.034) ng/mL NT-Pro-B Natriuret Pep pg/mL Total Protein 7.1 (6.3-8.2) g/dL Albumin 4.3 (3.5-5.0) g/dL Urine Color Urine Appearance (Clear) Urine pH (5.0-8.0) Ur Specific [place] (1.001-1.035) Urine Protein (Negative) Urine Glucose (UA) (Negative) Urine Ketones (Negative) Urine Blood (Negative) Urine Nitrite (Negative) Urine Bilirubin (Negative) Urine Urobilinogen (<2.0) mg/dL Ur Leukocyte Esterase (Negative) Urine HCG, Qual (Not Detectd) Coronavirus (PCR) (Not Detected) 11/27/19 11/27/19 11/27/19 Range/Units 14:39 14:39 14:39 WBC (3.8-10.6) k/uL RBC (3.80-5.40) m/uL Hgb (11.4-16.0) gm/dL Hct (34.0-46.0) % MCV (80.0-100.0) fL MCH (25.0-35.0) pg MCHC (31.0-37.0) g/dL RDW (11.5-15.5) % Plt Count (150-450) k/uL Neutrophils % % Lymphocytes % % Monocytes % % Eosinophils % % Basophils % % Neutrophils # (1.3-7.7) k/uL Lymphocytes # (1.0-4.8) k/uL Monocytes # (0-1.0) k/uL Eosinophils # (0-0.7) k/uL Basophils # (0-0.2) k/uL PT (9.0-12.0) sec INR (<1.2) APTT (22.0-30.0) sec D-Dimer (<0.60) mg/L FEU Sodium (137-145) mmol/L Potassium (3.5-5.1) mmol/L Chloride (98-107) mmol/L Carbon Dioxide (22-30) mmol/L Anion Gap mmol/L BUN (7-17) mg/dL Creatinine (0.52-1.04) mg/dL Est GFR (CKD-EPI)AfAm (>60 ml/min/1.73 sqM) Est GFR (CKD-EPI)NonAf (>60 ml/min/1.73 sqM) Glucose (74-99) mg/dL Lactic Ac Sepsis Rflx Plasma Lactic Acid Grabiel (0.7-2.0) mmol/L Calcium (8.4-10.2) mg/dL Magnesium (1.6-2.3) mg/dL Total Bilirubin (0.2-1.3) mg/dL AST (14-36) U/L ALT (4-34) U/L Alkaline Phosphatase (38-126) U/L Troponin I <0.012 (0.000-0.034) ng/mL NT-Pro-B Natriuret Pep 56 pg/mL Total Protein (6.3-8.2) g/dL Albumin (3.5-5.0) g/dL Urine Color Urine Appearance (Clear) Urine pH (5.0-8.0) Ur Specific [place] (1.001-1.035) Urine Protein (Negative) Urine Glucose (UA) (Negative) Urine Ketones (Negative) Urine Blood (Negative) Urine Nitrite (Negative) Urine Bilirubin (Negative) Urine Urobilinogen (<2.0) mg/dL Ur Leukocyte Esterase (Negative) Urine HCG, Qual (Not Detectd) Coronavirus (PCR) Not Detected (Not Detected) 11/27/19 11/27/19 11/27/19 Range/Units 14:52 14:53 14:53 WBC (3.8-10.6) k/uL RBC (3.80-5.40) m/uL Hgb (11.4-16.0) gm/dL Hct (34.0-46.0) % MCV (80.0-100.0) fL MCH (25.0-35.0) pg MCHC (31.0-37.0) g/dL RDW (11.5-15.5) % Plt Count (150-450) k/uL Neutrophils % % Lymphocytes % % Monocytes % % Eosinophils % % Basophils % % Neutrophils # (1.3-7.7) k/uL Lymphocytes # (1.0-4.8) k/uL Monocytes # (0-1.0) k/uL Eosinophils # (0-0.7) k/uL Basophils # (0-0.2) k/uL PT (9.0-12.0) sec INR (<1.2) APTT (22.0-30.0) sec D-Dimer (<0.60) mg/L FEU Sodium (137-145) mmol/L Potassium (3.5-5.1) mmol/L Chloride (98-107) mmol/L Carbon Dioxide (22-30) mmol/L Anion Gap mmol/L BUN (7-17) mg/dL Creatinine (0.52-1.04) mg/dL Est GFR (CKD-EPI)AfAm (>60 ml/min/1.73 sqM) Est GFR (CKD-EPI)NonAf (>60 ml/min/1.73 sqM) Glucose (74-99) mg/dL Lactic Ac Sepsis Rflx Plasma Lactic Acid Grabiel 2.3 H* (0.7-2.0) mmol/L Calcium (8.4-10.2) mg/dL Magnesium (1.6-2.3) mg/dL Total Bilirubin (0.2-1.3) mg/dL AST (14-36) U/L ALT (4-34) U/L Alkaline Phosphatase (38-126) U/L Troponin I (0.000-0.034) ng/mL NT-Pro-B Natriuret Pep pg/mL Total Protein (6.3-8.2) g/dL Albumin (3.5-5.0) g/dL Urine Color Colorless Urine Appearance Clear (Clear) Urine pH 7.5 (5.0-8.0) Ur Specific [place] 1.002 (1.001-1.035) Urine Protein Negative (Negative) Urine Glucose (UA) Negative (Negative) Urine Ketones Negative (Negative) Urine Blood Negative (Negative) Urine Nitrite Negative (Negative) Urine Bilirubin Negative (Negative) Urine Urobilinogen <2.0 (<2.0) mg/dL Ur Leukocyte Esterase Negative (Negative) Urine HCG, Qual Not Detected (Not Detectd) Coronavirus (PCR) (Not Detected) 11/27/19 Range/Units 15:06 WBC (3.8-10.6) k/uL RBC (3.80-5.40) m/uL Hgb (11.4-16.0) gm/dL Hct (34.0-46.0) % MCV (80.0-100.0) fL MCH (25.0-35.0) pg MCHC (31.0-37.0) g/dL RDW (11.5-15.5) % Plt Count (150-450) k/uL Neutrophils % % Lymphocytes % % Monocytes % % Eosinophils % % Basophils % % Neutrophils # (1.3-7.7) k/uL Lymphocytes # (1.0-4.8) k/uL Monocytes # (0-1.0) k/uL Eosinophils # (0-0.7) k/uL Basophils # (0-0.2) k/uL PT (9.0-12.0) sec INR (<1.2) APTT (22.0-30.0) sec D-Dimer (<0.60) mg/L FEU Sodium (137-145) mmol/L Potassium (3.5-5.1) mmol/L Chloride (98-107) mmol/L Carbon Dioxide (22-30) mmol/L Anion Gap mmol/L BUN (7-17) mg/dL Creatinine (0.52-1.04) mg/dL Est GFR (CKD-EPI)AfAm (>60 ml/min/1.73 sqM) Est GFR (CKD-EPI)NonAf (>60 ml/min/1.73 sqM) Glucose (74-99) mg/dL Lactic Ac Sepsis Rflx Y Plasma Lactic Acid Grabiel (0.7-2.0) mmol/L Calcium (8.4-10.2) mg/dL Magnesium (1.6-2.3) mg/dL Total Bilirubin (0.2-1.3) mg/dL AST (14-36) U/L ALT (4-34) U/L Alkaline Phosphatase (38-126) U/L Troponin I (0.000-0.034) ng/mL NT-Pro-B Natriuret Pep pg/mL Total Protein (6.3-8.2) g/dL Albumin (3.5-5.0) g/dL Urine Color Urine Appearance (Clear) Urine pH (5.0-8.0) Ur Specific [place] (1.001-1.035) Urine Protein (Negative) Urine Glucose (UA) (Negative) Urine Ketones (Negative) Urine Blood (Negative) Urine Nitrite (Negative) Urine Bilirubin (Negative) Urine Urobilinogen (<2.0) mg/dL Ur Leukocyte Esterase (Negative) Urine HCG, Qual (Not Detectd) Coronavirus (PCR) (Not Detected) - EKG Data EKG Comments: 1) ventricular rate 89, parents: 52, QRS 78, QT/QTC 366/445. Normal sinus rhythm. Nonspecific ST and T wave abnormality. 2) ventricular rate 89, parents for 150, QRS 74, QT/QTC 380 since 462. Normal sinus rhythm. Nonspecific ST and T wave abnormality. (Mayco Doan) Disposition Is patient prescribed a controlled substance at d/c from ED?: No <Mayco Doan - Last Filed: 11/27/19 16:47> <Meagan Martínez - Last Filed: 12/03/19 00:29> Clinical Impression: Chest pain Disposition: ADMITTED IP TO THIS HOSP Condition: Stable
[2019-11-27 14:52] LABS: Basophils % (A) 0 %; Eosinophils # (A) 0.1 k/uL (0-0.7); Eosinophils % (A) 1 %; HCT 39.8 % (34.0-46.0); HGB 14.1 gm/dL (11.4-16.0); Lymphocytes # (A) 1.5 k/uL (1.0-4.8); Lymphocytes % (A) 19 %; MCHC 35.4 g/dL (31.0-37.0); MCV 87.6 fL (80.0-100.0); Monocytes # (A) 0.5 k/uL (0-1.0); Monocytes % (A) 6 %; Neutrophils # (A) 5.8 k/uL (1.3-7.7); Neutrophils % (A) 73 %; Platelet Count 293 k/uL (150-450); RBC 4.54 m/uL (3.80-5.40); RDW 13.2 % (11.5-15.5)
[2019-11-27 15:02] LABS: ALT 15 U/L (4-34); AST 25 U/L (14-36); African American GFR (CKD) >90 (>60 ml/min/1.73 sqM); Albumin 4.3 g/dL (3.5-5.0); Alkaline Phosphatase 48 U/L (38-126); Anion Gap 11 mmol/L; Blood Urea Nitrogen 7 mg/dL (7-17); Calcium 9.5 mg/dL (8.4-10.2); Carbon Dioxide 17 mmol/L (22-30); Chloride 111 mmol/L (98-107); Glucose 128 mg/dL (74-99); Magnesium 2.2 mg/dL (1.6-2.3); Non-African American GFR(CKD) >90 (>60 ml/min/1.73 sqM); Potassium 3.3 mmol/L (3.5-5.1); Sodium 139 mmol/L (137-145); Total Bilirubin 0.3 mg/dL (0.2-1.3); Total Protein 7.1 g/dL (6.3-8.2)
[2019-11-27 15:05] LABS: Appearance,Urine Clear (Clear); Bilirubin,Urine Negative (Negative); Blood,Urine Negative (Negative); Color,Urine Colorless; Glucose,Urine (UA) Negative (Negative); Ketones,Urine Negative (Negative); Leukocyte Esterase,Urine Negative (Negative); Nitrite,Urine Negative (Negative); PH, Urine 7.5 (5.0-8.0); Protein,Urine Negative (Negative); Specific Gravity,Urine 1.002 (1.001-1.035); Urobilinogen,Urine <2.0 mg/dL (<2.0)
[2019-11-27 15:12] LABS: D-Dimer 0.39 mg/L FEU (<0.60); INR 0.9 (<1.2); Partial Thromboplastin Time 21.8 sec (22.0-30.0); Prothrombin Time 9.5 sec (9.0-12.0)
--- NOTE | 2019-11-27 15:24 | XR ---
EXAMINATION TYPE: XR soft tissue neck DATE OF EXAM: 11/27/2019 COMPARISON: 03/21/2012 HISTORY: Foreign body sensation TECHNIQUE: 2 view soft tissue neck FINDINGS: Epiglottis appears unremarkable. Hypopharynx is unremarkable. Prevertebral space is normal. Subglottic airway is normal. Artifact from buttons appears to be at the level of the thoracic inlet. IMPRESSION: 1. No suspicious changes.
--- NOTE | 2019-11-27 16:04 | XR ---
EXAMINATION TYPE: XR chest 2V DATE OF EXAM: 11/27/2019 COMPARISON: 09/06/2017 INDICATION: Chest pain TECHNIQUE: Frontal and lateral views of the chest are obtained. FINDINGS: The heart size is normal. The pulmonary vasculature is normal. The lungs are clear. IMPRESSION: 1. No acute pulmonary process.
[2019-11-27] MEDS ORDERED: POTASSIUM CHLORIDE ER 20 MEQ TAB.ER PO STA (16:45)
[2019-11-27] MEDS ORDERED: NITROGLYCERIN SL TABS 0.4 MG TAB SUBLINGUAL PRN (16:47)
[2019-11-27] MEDS ORDERED: E ESTRADIOL PO SCH (21:00)
[2019-11-27] MEDS ORDERED: LORATADINE 10 MG TAB PO SCH (21:00)
[2019-11-27] MEDS ORDERED: DESOG E ESTRADIOL PO SCH (21:00)
[2019-11-27] MEDS ORDERED: ATORVASTATIN 10 MG TAB PO SCH (21:00)
[2019-11-27] MEDS ORDERED: TOPIRAMATE 25 MG TAB PO SCH (21:00)
[2019-11-27] MEDS ORDERED: CITALOPRAM HYDROBROMIDE 20 MG TAB PO SCH (21:00)
[2019-11-27] MEDS ORDERED: PANTOPRAZOLE 40 MG TABLET PO SCH (21:00)
[2019-11-27] MEDS ORDERED: ASCORBIC ACID 500 MG TAB PO SCH (21:00)
--- NOTE | 2019-11-27 22:14 | P.HPIM ---
History of Present Illness H&P Date: 11/27/19 Chief Complaint: Sore throat, palpitations History of presenting complaint: This is a pleasant 44-year-old patient of Dr. Mott. For 5 days throat has been hurting. Has a slight cough which is dry. No fever no chills. Slight body aches. She also also notices heart racing on and off and palpitations last few days. Decreased appetite. Nobody else in the house is sick. She will also had some chest pressure. No radiation. Patient's voice is slightly squeaky Review of systems: GEN.: Tired EYES: None HEENT: As above NECK: None RESPIRATORY: None CARDIOVASCULAR: [As above GASTROINTESTINAL: None GENITOURINARY: None MUSCULOSKELETAL: None LYMPHATICS: None HEMATOLOGICAL: None PSYCHIATRY: None NEUROLOGICAL: None Past medical history to include: Hyperlipidemia, Social history: . Works history to [place] in the [employer] system. Currently working from home. No smoking, alcohol occasionally Family history: Reviewed, noncontributory to presentation Physical examination: VITAL SIGNS: [98.3, 84, 16, 139/84, 98% room air GENERAL: [BMI 26.9, sitting up in bed, awake. EYES: Pupils equal. Conjunctiva normal. HEENT: External appearance of nose and ears normal, oral cavity grossly normal pharynx appears to be normal. NECK: JVD not raised; masses not palpable. HEART: First and second heart sounds are normal; no edema. LUNGS: Respiratory rate normal; clear to auscultation. ABDOMEN: Soft, nontender, liver spleen not palpable, no masses palpable. PSYCH: Alert and oriented x3; mood and affect normal. NEUROLOGICAL: Cranial nerves grossly intact; no facial asymmetry, power and sensation grossly intact. LYMPHATICS: No lymph nodes palpable in the axilla and neck. INVESTIGATIONS, reviewed in the clinical context: White count 8 hemoglobin 14.1 platelets 293 potassium 3.3 creatinine 0.62 plasma lactic acid 2.3 Troponin I 2 negative UA negative EKG tracing personally reviewed by me-sinus rhythm with some ST segment depression leads V3 to V6 Chest x-ray film personally reviewed by me-lung gasca clear Assessment: -Patient for about 5 days been having a sore throat and dry cough no sputum production. No fever or chills. Most likely appears to be viral laryngitis. On pharyngeal examination there is no local injection noted. -Palpitations could be from a viral affect. No biochemical evidence of any myocarditis. Patient has slight depression of ST segment changes. Later 2-D echocardiogram at least. And possibly stress test. Plan: Patient told to use warm water with salt gargles and avoid cold liquids. 2-D echocardiogram ordered and cardiology being ordered. Lovenox for DVT prophylaxis. Past Medical History Past Medical History: Chest Pain / Angina, Hyperlipidemia Additional Past Medical History / Comment(s): HX BLEEDING FROM RECTUM., History of Any Multi-Drug Resistant Organisms: None Reported Past Surgical History: Adenoidectomy, Appendectomy, Tonsillectomy Additional Past Surgical History / Comment(s): LAPAROTOMY; LAPAROSCOPIES; colonoscopy and EGD 11/19/13, Past Anesthesia/Blood Transfusion Reactions: Motion Sickness Smoking Status: Never smoker Medications and Allergies Home Medications Medication Instructions Recorded Confirmed Type Atorvastatin Calcium [Lipitor] 10 mg PO HS 11/19/13 11/27/19 History Ascorbic Acid [Vitamin C] 1,000 mg PO HS 11/27/19 11/27/19 History Cholecalciferol [Vitamin D3 (25 2,000 unit PO HS 11/27/19 11/27/19 History Mcg = 1000 Iu)] Citalopram Hydrobromide 20 mg PO HS 11/27/19 11/27/19 History [Citalopram HBr] Desog-E.estradiol/E.estradiol 1 each PO HS 11/27/19 11/27/19 History [Azurette 28 Day Tablet] Fish Oil/Dha/Epa [Fish Oil 1,200 1 cap PO HS 11/27/19 11/27/19 History mg Fish Oil] Loratadine 10 mg PO HS 11/27/19 11/27/19 History Omeprazole [PriLOSEC] 40 mg PO HS 11/27/19 11/27/19 History Topiramate [Topamax] 50 mg PO HS 11/27/19 11/27/19 History Allergies Allergy/AdvReac Type Severity Reaction Status Date / Time cefuroxime Allergy Unknown Verified 11/27/19 16:11 guaifenesin [From Mucinex] Allergy Anaphylaxis Verified 11/27/19 16:11 minocycline [Minocycline] Allergy Anaphylaxis Verified 11/27/19 16:11 mucus relief Allergy Anaphylaxis Uncoded 11/27/19 13:27 Physical Exam Vitals: Vital Signs Temp Pulse Pulse Resp BP BP Pulse Ox 11/27/19 18:39 96.9 F L 77 14 126/74 99 11/27/19 17:44 75 16 111/74 99 11/27/19 15:18 98.7 F 97 16 119/76 99 11/27/19 14:42 103 H 16 113/74 98 11/27/19 13:27 98.3 F 84 16 139/84 98 Intake and Output 11/27/19 11/27/19 11/27/19 06:59 14:59 22:59 Other: Weight 71.214 kg 71.214 kg Results CBC & Chem 7: 11/27/19 14:39 11/27/19 14:39 Labs: Abnormal Lab Results - Last 24 Hours (Table) 11/27/19 11/27/19 11/27/19 Range/Units 14:39 14:39 14:52 APTT 21.8 L (22.0-30.0) sec Potassium 3.3 L (3.5-5.1) mmol/L Chloride 111 H (98-107) mmol/L Carbon Dioxide 17 L (22-30) mmol/L Glucose 128 H (74-99) mg/dL Plasma Lactic Acid Grabiel 2.3 H* (0.7-2.0) mmol/L Thrombosis Risk Factor Assmnt - Choose All That Apply Any of the Below Risk Factors Present?: Yes Each Factor Represents 1 point: Age 41-60 years Other Risk Factors: No Thrombosis Risk Factor Assessment Total Risk Factor Score: 1 Thrombosis Risk Factor Assessment Level: Low Risk
[2019-11-28 07:21] LABS: Cholesterol 187 mg/dL (<200); HDL Cholesterol 46 mg/dL (40-60); LDL Cholesterol,Calculated 111 mg/dL (0-99); Triglycerides 149 mg/dL (<150)
[2019-11-28] MEDS ORDERED: ASPIRIN 325 MG TAB PO SCH (09:00)
--- NOTE | 2019-11-28 13:00 | P.CRDCN ---
History of Present Illness History of present illness: HISTORY OF PRESENTING ILLNESS This is a pleasant 44-year-old female past medical history significant for dyslipidemia. She follows in the office with Dr. Terry. We have been asked to see in consultation for chest pain. She states yesterday while sitting down at her desk working she felt a flushed sensation. She checked her heart rate and it was 120 on her pulse ox. She then started feeling a discomfort in her chest described as a tightness. The chest pain persisted until she went to sleep last night. It was constant and ongoing with no specific aggravating or alleviating factors. There was no radiation to the arm, back or jaw. She does have a full sensation in her throat associated with loss of her voice. She states for the previous one week she has been experiencing increased drainage in her throat. Her PCP started her on omeperazole which she took for 4 days without relief. She actually felt like it made her feel worse. DIAGNOSTICS EKG reveals sinus mechanism with mild ST changes inferior-laterally, appear new when compared to EKG from 2018. Chest xray negative for an acute cardiopulmonary process. Laboratory reviewed, CBC unremarkable, d-dimer 0.39, cardiac enzymes negative 3, LDL 111, HDL 46, lactic acid on admission 2. 3 repeat after hydration 1.5, sodium 139, potassium 3.3, creatinine 0.62, NT proBNP 56. Current cardiac medications include atorvastatin 10 mg at bedtime. Most recent echocardiogram dated 2017 was negative for stress-induced ischemia with preserved LV systolic function and ejection fraction 60-65%. REVIEW OF SYSTEMS At the time of my exam: CONSTITUTIONAL: Denies fever or chills. CARDIOVASCULAR: Denies chest pain, shortness of breath, orthopnea, PND or palpitations. RESPIRATORY: Denies cough. GASTROINTESTINAL: Denies abdominal pain, diarrhea, constipation, nausea or vomiting. MUSCULOSKELETAL: Denies myalgias. NEUROLOGIC: Denies numbness, tingling or weakness. ENDOCRINE: Denies fatigue, weight change, polydipsia or polyurina. GENITOURINARY: Denies burning, hematuria or urgency with micturation. HEMATOLOGIC: Denies history of anemia or bleeding. PHYSICAL EXAMINATION Blood pressure 105/60 heart rate 65 afebrile and maintaining oxygen saturation on room air. CONSTITUTIONAL: No apparent distress. HEENT: Head is normocephalic. Pupils are equal, round. Sclerae anicteric. Mucous membranes of the mouth are moist. No JVD. No carotid bruit. CHEST EXAMINATION: Lungs are clear to auscultation. No chest wall tenderness is noted on palpation or with deep breathing. HEART EXAMINATION: Regular rate and rhythm. S1, S2 heard. No murmurs, gallops or rub. ABDOMEN: Soft, nontender. Positive bowel sounds. EXTREMITIES: 2+ peripheral pulses, no lower extremity edema and no calf tenderness. NEUROLOGIC EXAMINATION: Patient is awake, alert and oriented x3. ASSESSMENT Chest pain, atypical. An acute coronary event has been ruled out. Abnormal baseline EKG Dyslipidemia PLAN An acute coronary event has been ruled out. Obtain 2-D echocardiogram and Doppler study to assess cardiac structure and function. Perform stress echocardiogram to assess for stress-induced cardiac ischemia. Increase atorvastatin to 20 mg daily. If stress test is normal she can be discharged from a cardiac perspective to follow up with Dr. Terry in the office. Thank you kindly for this consultation. Nurse Practitioner note has been reviewed, I agree with a documented findings and plan of care. Patient was seen and examined. Past Medical History Past Medical History: Chest Pain / Angina, Hyperlipidemia Additional Past Medical History / Comment(s): HX BLEEDING FROM RECTUM., History of Any Multi-Drug Resistant Organisms: None Reported Past Surgical History: Adenoidectomy, Appendectomy, Tonsillectomy Additional Past Surgical History / Comment(s): LAPAROTOMY; LAPAROSCOPIES; colonoscopy and EGD 11/19/13, Past Anesthesia/Blood Transfusion Reactions: Motion Sickness Smoking Status: Never smoker Medications and Allergies Home Medications Medication Instructions Recorded Confirmed Type Atorvastatin Calcium [Lipitor] 10 mg PO HS 11/19/13 11/27/19 History Ascorbic Acid [Vitamin C] 1,000 mg PO HS 11/27/19 11/27/19 History Cholecalciferol [Vitamin D3 (25 2,000 unit PO HS 11/27/19 11/27/19 History Mcg = 1000 Iu)] Citalopram Hydrobromide 20 mg PO HS 11/27/19 11/27/19 History [Citalopram HBr] Desog-E.estradiol/E.estradiol 1 each PO HS 11/27/19 11/27/19 History [Azurette 28 Day Tablet] Fish Oil/Dha/Epa [Fish Oil 1,200 1 cap PO HS 11/27/19 11/27/19 History mg Fish Oil] Loratadine 10 mg PO HS 11/27/19 11/27/19 History Omeprazole [PriLOSEC] 40 mg PO HS 11/27/19 11/27/19 History Topiramate [Topamax] 50 mg PO 11/27/19 11/27/19 History Allergies Allergy/AdvReac Type Severity Reaction Status Date / Time cefuroxime Allergy Unknown Verified 11/27/19 16:11 guaifenesin [From Mucinex] Allergy Anaphylaxis Verified 11/27/19 16:11 minocycline [Minocycline] Allergy Anaphylaxis Verified 11/27/19 16:11 mucus relief Allergy Anaphylaxis Uncoded 11/27/19 13:27 Physical Exam Vitals: Vital Signs Temp Pulse Pulse Resp BP BP Pulse Ox 11/28/19 04:00 97.5 F L 68 14 108/63 99 11/28/19 03:40 16 11/28/19 00:00 97.6 F 16 106/63 98 11/27/19 23:30 66 17 11/27/19 20:00 97.6 F 66 17 123/78 98 11/27/19 19:35 14 11/27/19 18:39 96.9 F L 77 14 126/74 99 11/27/19 17:44 75 16 111/74 99 11/27/19 15:18 98.7 F 97 16 119/76 99 11/27/19 14:42 103 H 16 113/74 98 11/27/19 13:27 98.3 F 84 16 139/84 98 Intake and Output 11/27/19 11/28/19 11/28/19 22:59 06:59 14:59 Intake Total 240 Balance 240 Intake: Oral 240 Other: # Voids 1 Weight 71.214 kg Results 11/27/19 14:39 11/27/19 14:39 Cardiac Enzymes 11/27/19 11/27/19 11/27/19 Range/Units 14:39 14:39 17:14 AST 25 (14-36) U/L Troponin I <0.012 <0.012 (0.000-0.034) ng/mL 11/27/19 Range/Units 20:56 AST (14-36) U/L Troponin I <0.012 (0.000-0.034) ng/mL Coagulation 11/27/19 Range/Units 14:39 PT 9.5 (9.0-12.0) sec APTT 21.8 L (22.0-30.0) sec Lipids 11/28/19 Range/Units 06:49 Triglycerides 149 (<150) mg/dL Cholesterol 187 (<200) mg/dL HDL Cholesterol 46 (40-60) mg/dL CBC 11/27/19 Range/Units 14:39 WBC 8.0 (3.8-10.6) k/uL RBC 4.54 (3.80-5.40) m/uL Hgb 14.1 (11.4-16.0) gm/dL Hct 39.8 (34.0-46.0) % Plt Count 293 (150-450) k/uL Comprehensive Metabolic Panel 11/27/19 Range/Units 14:39 Sodium 139 (137-145) mmol/L Potassium 3.3 L (3.5-5.1) mmol/L Chloride 111 H (98-107) mmol/L Carbon Dioxide 17 L (22-30) mmol/L BUN 7 (7-17) mg/dL Creatinine 0.62 (0.52-1.04) mg/dL Glucose 128 H (74-99) mg/dL Calcium 9.5 (8.4-10.2) mg/dL AST 25 (14-36) U/L ALT 15 (4-34) U/L Alkaline Phosphatase 48 (38-126) U/L Total Protein 7.1 (6.3-8.2) g/dL Albumin 4.3 (3.5-5.0) g/dL Current Medications Generic Name Dose Route Start Last Admin Trade Name Reuben PRN Reason Stop Dose Admin Ascorbic Acid 1,000 mg 11/27/19 21:00 11/27/19 21:11 Vitamin C PO 1,000 mg HS LISA Administration Aspirin 325 mg 11/28/19 09:00 Aspirin PO DAILY LISA Atorvastatin Calcium 10 mg 11/27/19 21:00 11/27/19 21:12 Lipitor PO 10 mg HS LISA Administration Citalopram Hydrobromide 20 mg 11/27/19 21:00 11/27/19 21:13 Celexa PO 20 mg HS LISA Administration Loratadine 10 mg 11/27/19 21:00 11/27/19 21:12 Claritin PO 10 mg HS LISA Administration Nitroglycerin 0.4 mg 11/27/19 16:47 Nitrostat SUBLINGUAL Q5M PRN Chest Pain Patient's Own (Desog 1 each 11/27/19 21:00 11/27/19 21:14 -E.Estradiol/E. PO Not Given Estradiol [Azurette HS LISA 28 Day Tablet] 1 Each) Pantoprazole Sodium 40 mg 11/27/19 21:00 11/27/19 21:12 Protonix PO Not Given HS LISA Topiramate 50 mg 11/27/19 21:00 11/27/19 21:12 Topamax PO 50 mg HS LISA Administration Intake and Output 11/27/19 11/28/19 11/28/19 22:59 06:59 14:59 Intake Total 240 Balance 240 Intake: Oral 240 Other: # Voids 1 Weight 71.214 kg 11/27/19 14:39 11/27/19 14:39
[2019-11-28] MEDS ORDERED: ATORVASTATIN 10 MG TAB PO SCH (21:00)
--- NOTE | 2019-11-28 23:12 | P.DS ---
Providers Date of admission: 11/27/19 16:36 Expected date of discharge: 11/28/19 Attending physician: Darren Chaudhry Consults: 11/27/19 16:47 Consult Physician Stat Consulting Provider: Valentín Lin Consult Reason/Comments: foreign body sensation throat Do you want consulting provider notified?: Yes 11/27/19 16:49 Consult Physician Urgent Consulting Provider: Calvin Arguello Consult Reason/Comments: chest pain Do you want consulting provider notified?: Yes Primary care physician: José Pantera [facility] Course: Chief Complaint: Sore throat, palpitations History of presenting complaint: This is a pleasant 44-year-old patient of Dr. Mott. For 5 days throat has been hurting. Has a slight cough which is dry. No fever no chills. Slight body aches. She also also notices heart racing on and off and palpitations last few days. Decreased appetite. Nobody else in the house is sick. She will also had some chest pressure. No radiation. Patient's voice is slightly squeaky Today-underwent a stress test that came back to be negative. Care was discussed with the patient. Mother is present .. Cleared by cardiology. Consultation: Cardiology associates Physical examination: VITAL SIGNS: 97.6, 65, 16, 105 was 60, 99% room air GENERAL: [Propped up in bed, awake EYES: Pupils equal. Conjunctiva normal. HEENT: External appearance of nose and ears normal, oral cavity grossly normal pharynx appears to be normal. NECK: JVD not raised; masses not palpable. HEART: First and second heart sounds are normal; no edema. LUNGS: Respiratory rate normal; clear to auscultation. ABDOMEN: Soft, nontender, liver spleen not palpable, no masses palpable. PSYCH: Alert and oriented x3; mood and affect some anxiety INVESTIGATIONS, reviewed in the clinical context: LDL 111 White count 8 hemoglobin 14.1 platelets 293 potassium 3.3 creatinine 0.62 plasma lactic acid 2.3 Troponin I 2 negative UA negative EKG tracing personally reviewed by me-sinus rhythm with some ST segment depression leads V3 to V6 Chest x-ray film personally reviewed by me-lung gasca clear Assessment: -viral laryngitis.-Acute -Palpitation likely from anxiety. Corresponding times of palpitations did not reveal any arrhythmia on the telemetry. -Lactic acidosis type II from dehydration Disposition: Home Patient Condition at Discharge: Stable Plan - Discharge Summary New Discharge Prescriptions: Continue Atorvastatin Calcium [Lipitor] 10 mg PO HS Omeprazole [PriLOSEC] 40 mg PO HS Fish Oil/Dha/Epa [Fish Oil 1,200 mg Fish Oil] 1 cap PO HS Cholecalciferol [Vitamin D3 (25 Mcg = 1000 Iu)] 2,000 unit PO HS Ascorbic Acid [Vitamin C] 1,000 mg PO HS Loratadine 10 mg PO HS Desog-E.estradiol/E.estradiol [Azurette 28 Day Tablet] 1 each PO HS Citalopram Hydrobromide [Citalopram HBr] 20 mg PO HS Topiramate [Topamax] 50 mg PO HS Discharge Medication List Atorvastatin Calcium [Lipitor] 10 mg PO HS 11/19/13 [History] Ascorbic Acid [Vitamin C] 1,000 mg PO HS 11/27/19 [History] Cholecalciferol [Vitamin D3 (25 Mcg = 1000 Iu)] 2,000 unit PO HS 11/27/19 [History] Citalopram Hydrobromide [Citalopram HBr] 20 mg PO HS 11/27/19 [History] Desog-E.estradiol/E.estradiol [Azurette 28 Day Tablet] 1 each PO HS 11/27/19 [History] Fish Oil/Dha/Epa [Fish Oil 1,200 mg Fish Oil] 1 cap PO HS 11/27/19 [History] Loratadine 10 mg PO HS 11/27/19 [History] Omeprazole [PriLOSEC] 40 mg PO HS 11/27/19 [History] Topiramate [Topamax] 50 mg PO HS 11/27/19 [History] Follow up Appointment(s)/Referral(s): Óscar Terry MD [STAFF PHYSICIAN] - 2 Weeks José Mott DO [Primary Care Provider] - 1-2 days Patient Instructions/Handouts: Laryngitis (DC) Activity/Diet/Wound Care/Special Instructions: avoid iced and cold liquids. Warm water with salt gargles every 2 hours as tolerated. Discharge Disposition: HOME SELF-CARE
--- NOTE | 2019-11-28 23:14 | ECHOS ---
STRESS ECHOCARDIOGRAM INDICATIONS: Chest pain. MEDICATIONS: BASELINE HEART RATE: 60 BASELINE BLOOD PRESSURE: 129/63 MAXIMUM HEART RATE: 161 MAXIMUM BLOOD PRESSURE: 145/51 85% MPHR: 151 100% MPHR: 178 METS: 13.1 MAXIMUM STAGE REACHED: 5 TOTAL EXERCISE TIME: 12:45 CLINICAL INFORMATION: Baseline rhythm is a sinus mechanism, rate of 60, normal axis and intervals, poor R- wave progression. Baseline blood pressure 129/63 mmHg. Patient exercised post protocol for 12 minutes, 45 seconds reaching a peak rate of 169 beats per minute which is equal to 95% maximum predicted heart rate. Peak blood pressure 145/51 mmHg. Stress was terminated due to fatigue. There was no chest pain. Electrocardiograph monitoring revealed no evidence of diagnostic ischemic ST deviation. FINDINGS: Baseline echocardiogram revealed normal wall motion. At peak exercise, there was normal wall motion augmentation with no hypokinesis or dyskinesis. CONCLUSION: 1. Good exercise tolerance with normal echocardiograph response to exercise. 2. Normal stress echocardiogram with no evidence of stress-induced ischemia. MMODL / IJN: [id number] /
[2019-11-29] MEDS ORDERED: ASPIRIN 325 MG TAB PO SCH (09:00)
[2019-11-30 08:48] VITALS: BP 105/60; PULSE 65; RESP 16; TEMP 97.6
== END 2019-11-28 16:26 | disposition home or self-care (01) ==
LOC: EC 13:23 → 1SOBS 16:36
PROVIDERS: ADMIT Hospitalist; ATTEND Hospitalist
DX: J04.0 Acute laryngitis (principal); R00.2 Palpitations; E87.2 Acidosis; E86.0 Dehydration; R07.89 Other chest pain; R06.02 Shortness of breath; R00.0 Tachycardia, unspecified; R94.39 Abnormal result of other cardiovascular function study; E78.5 Hyperlipidemia, unspecified; Z03.818 Encounter for observation for suspected exposure to other biological agents ruled out; Z79.899 Other long term (current) drug therapy; Z79.890 Hormone replacement therapy; Z88.1 Allergy status to other antibiotic agents; Z88.8 Allergy status to other drugs, medicaments and biological substances; Z87.19 Personal history of other diseases of the digestive system; Z90.89 Acquired absence of other organs; Z98.890 Other specified postprocedural states; Z87.898 Personal history of other specified conditions; Z90.49 Acquired absence of other specified parts of digestive tract
CPT/HCPCS: 93005 ×2; 96360; 96361; 99285; 36415; 93351; 85379; 83880; 80061; 80053; 83605; 83735; 84484; 85025; 85610; 85730; 81003; 81025; 87040; 70360; 71046; G0378 ×2; U0003

== ENCOUNTER → 2019-12-17 | Outpatient (CLI) | payer OTHER | END | disposition home or self-care (01) | LOC: LABWHC1 07:08 | PROVIDERS: ATTEND Physician Assistant | DX: R00.2 Palpitations (principal); Z82.49 Family history of ischemic heart disease and other diseases of the circulatory system | CPT/HCPCS: 36415; 84443 ==

== ENCOUNTER → 2020-02-05 | Outpatient (CLI) | payer OTHER ==
--- NOTE | 2020-02-05 17:42 | ECHOF ---
Referral Reason:R00.2 palpitations MEASUREMENTS -------- HEIGHT: 162.6 cm WEIGHT: 70.8 kg BP: IVSd: 1.2 cm (0.6 - 1.1) LVIDd: 4.3 cm (3.9 - 5.3) LVPWd: 1.1 cm (0.6 - 1.1) EDV(Teich): 82 ml IVSs: 1.4 cm LVIDs: 2.5 cm LVPWs: 1.5 cm %IVS Thck: 24 % ESV(Teich): 23 ml EF(Teich): 73 % %FS: 41 % SV(Teich): 60 ml RVIDd: 2.6 cm (< 3.3) IVC: 13.44 mm LALs A4C: 4.5 cm LAAs A4C: 13.9 cm LAESV A-L A4C: 37 ml LAESV MOD A4C: 35 ml LALs A2C: 4.9 cm LAAs A2C: 15.0 cm LAESV A-L A2C: 39 ml LAESV MOD A2C: 37 ml LAESV(A-L): 39 ml LAESV Index (A-L): 22.34 ml/m Ao Diam: 2.2 cm (2.0 - 3.7) LA Diam: 2.9 cm (2.7 - 3.8) AV Cusp: 2.0 cm (1.5 - 2.6) EPSS: 0.9 cm MV E Hilario: 0.96 m/s MV DecT: 238 ms MV Dec [place]: 4.0 m/s MV A Hilario: 0.79 m/s MV E/A Ratio: 1.21 MV PHT: 69 ms MR Vmax: 1.32 m/s MR maxP.95 mmHg AV Vmax: 1.36 m/s AV maxP.42 mmHg TR Vmax: 2.14 m/s TR maxP.28 mmHg RAP: 5.00 mmHg RVSP: 23.28 mmHg MV EF SLOPE: 104.96 mm/s (70 - 150) MV EXCURSION: 14.88 mm (> 18.000) FINDINGS -------- This was a technically good study. The left ventricular size is normal. There is borderline concentric left ventricular hypertrophy. Overall left ventricular systolic function is normal with, an EF between 55 - 60 %. The diastolic filling pattern is normal for the age of the patient 10.38. The right ventricle is normal in size. The left atrial size is normal. Normal LA size by volume 22+/-6 ml/m2. The right atrial size is normal. Interatrial and interventricular septum intact. The aortic valve is trileaflet and appears structurally normal. The mitral valve is normal. There is trace mitral regurgitation. The tricuspid valve appears structurally normal. Trace tricuspid regurgitation present. Right lela tricular systolic pressure is normal at < 35 mmHg. There is no pulmonic regurgitation present. The aortic root size is normal. Normal inferior vena cava with normal inspiratory collapse consistent with estimated right atrial pre ssure of 5 mmHg. There is no pericardial effusion. CONCLUSIONS -------- 1. The left ventricular size is normal. 2. There is borderline concentric left ventricular hypertrophy. 3. Overall left ventricular systolic function is normal with, an EF between 55 - 60 %. 4. The diastolic filling pattern is normal for the age of the patient 10.38 5. There is trace mitral regurgitation. 6. Trace tricuspid regurgitation present. 7. There is no pericardial effusion. KNURLING MACHINE TENDER: Ml Higginbotham RDCS
== END | disposition home or self-care (01) ==
LOC: RADECHMAIN 13:55
PROVIDERS: ATTEND Internal Medicine Clinical Cardiac Electrophysiology
DX: I08.1 Rheumatic disorders of both mitral and tricuspid valves (principal)
CPT/HCPCS: 93306

== ENCOUNTER → 2020-05-15 | Outpatient (CLI) | payer OTHER ==
--- NOTE | 2020-05-20 10:00 | MM ---
Reason for exam: screening (asymptomatic). Last mammogram was performed 1 year and 2 months ago. History: Taking hormonal contraceptives for 25 years. Physical Findings: A clinical breast exam by your physician is recommended on an annual basis and results should be correlated with mammographic findings. MG 3D Screening Mammo W/Cad Bilateral CC and MLO view(s) were taken. Prior study comparison: March 23, 2019, bilateral MG 3d diag mammo w/cad [facility]. August 28, 2018, left breast MG 3d diag mammo w/cad LT. The breast tissue is heterogeneously dense. This may lower the sensitivity of mammography. No significant changes when compared with prior studies. ASSESSMENT: Negative, BI-RAD 1 RECOMMENDATION: Routine screening mammogram of both breasts in 1 year. Patient should continue monthly self breast exams. A negative report should not preclude additional follow up of suspicious palpable abnormalities.
== END | disposition home or self-care (01) ==
LOC: RADMAMWWP 07:34
PROVIDERS: ATTEND Obstetrics & Gynecology
DX: Z12.31 Encounter for screening mammogram for malignant neoplasm of breast (principal)
CPT/HCPCS: 77063; 77067

== ENCOUNTER → 2020-08-12 | Outpatient (CLI) | payer OTHER ==
--- NOTE | 2020-08-12 15:54 | US ---
EXAMINATION TYPE: US pelvis complete transvag DATE OF EXAM: 08/12/2020 COMPARISON: NONE CLINICAL HISTORY: R10.2 pelvic pain. TECHNIQUE: Transvaginal (TV) and Transabdominal (TA) . Transabdominal sonographic images of the pel vis were acquired. Transvaginal sonographic images were medically necessary to better assess the fol lowing anatomy: endometrium, right ovary Date of LMP: 08-05-20 EXAM MEASUREMENTS: Uterus: 8.2 x 4.0 x 4.6 cm Endometrial Stripe: unable to visualize Right Ovary: Obscured by overlying bowel gas Left Ovary: 3.1 x 1.7 x 1.6 cm 1. Uterus: Anteverted, question a bulky appearance. 2. Endometrium: unable to visualize abdominally or transvaginally due to extensive overlying perista lsing bowel 3. Right Ovary: Obscured by overlying bowel gas 4. Left Ovary: wnl 5. Bilateral Adnexa: wnl 6. Posterior cul-de-sac: wnl IMPRESSION: Exam is limited. Endometrium, right ovary are not visualized. Question underlying fibroid s. Endovaginal scanning shows a somewhat featureless appearance to the myometrium. Pelvic MRI may be of benefit.
== END | disposition home or self-care (01) ==
LOC: RADUSWWP 14:51
PROVIDERS: ATTEND Obstetrics & Gynecology
DX: R10.2 Pelvic and perineal pain (principal)
CPT/HCPCS: 76830; 76856

== ENCOUNTER → 2020-10-15 | Outpatient (CLI) | payer OTHER ==
[2020-10-16 03:35] LABS: Alternaria alternata IgE <0.10 kU/L; Aspergillus fumagatus IgE <0.10 kU/L; Birch IgE <0.10 kU/L; Cat Epith & Dander IgE <0.10 kU/L; Cladosporian herbarum IgE <0.10 kU/L; Cockroach IgE <0.10 kU/L; Dermato. farinae IgE <0.10 kU/L; Dog Dander IgE <0.10 kU/L; Elm IgE <0.10 kU/L; Immunoglobulin E 1.68 IU/mL (0.00-114.00); Maple (Box Elder) IgE <0.10 kU/L; Oak IgE <0.10 kU/L; Ragweed,Common IgE <0.10 kU/L; Red Top (Bentgrass) IgE <0.10 kU/L
[2020-10-16 15:05] LABS: IgG Subclass 3 17.2 mg/dL (11.0-85.0); IgG Subclass 4 10.7 mg/dL (3.0-175.0)
[2020-10-16 15:30] LABS: Immunoglobulin M 73.7 mg/dL (40.0-280.0)
== END | disposition home or self-care (01) ==
LOC: LABWHC1 12:21
PROVIDERS: ATTEND Allergy & Immunology
DX: T78.40XA Allergy, unspecified, initial encounter (principal); B99.9 Unspecified infectious disease
CPT/HCPCS: 36415; 82784; 82785; 82787; 83520; 86003; 86317

== ENCOUNTER → 2020-12-17 | Outpatient (CLI) | payer OTHER ==
--- NOTE | 2020-12-17 14:13 | XR ---
EXAMINATION TYPE: XR orbit complete bilateral DATE OF EXAM: 12/17/2020 COMPARISON: None HISTORY: Left-sided facial pain following fall TECHNIQUE: Orbits are examined in 3 views FINDINGS: Orbits appear symmetrical. Maxillary sinuses are clear. No orbital floor fractures identifi ed. Nasal bone and maxillary spine appear intact. Frontal sinuses are clear. Sella is unremarkable. IMPRESSION: 1. Normal bilateral orbits. No fractures are identified
== END | disposition home or self-care (01) ==
LOC: RADXRMAIN 12:47
PROVIDERS: ATTEND Family Medicine
DX: S00.83XA Contusion of other part of head, initial encounter (principal); X58.XXXA Exposure to other specified factors, initial encounter
CPT/HCPCS: 70200

== ENCOUNTER → 2021-01-19 | Outpatient (CLI) | payer OTHER | END | disposition home or self-care (01) | LOC: LABWHC1 07:58 | PROVIDERS: ATTEND Allergy & Immunology | DX: Z53.9 Procedure and treatment not carried out, unspecified reason (principal) ==

== ENCOUNTER 2021-02-12 07:53 | Day surgery (SDC) | payer OTHER ==
[2021-02-09 15:56] VITALS: BMI 28.8
[~2021-02-12 07:53] MED LIST: SODIUM CHLORIDE 0.9% 1,000 ML IV SCH
[2021-02-12 08:24] VITALS: BP 116/66; PULSE 77; RESP 18; TEMP 99.6
--- NOTE | 2021-02-12 10:45 | P.EPPROC ---
- EP Procedure Note Electrophysiology Procedure Note: Diagnosis Palpitations and syncope in November Twelve-lead EKG shows sinus rhythm normal PA narrow QRS normal ST segments Normal QT interval no epsilon waves no delta waves Tilt table test per protocol Baseline blood pressure 106/62 mmHg, Baseline heart rate 61 beats a minute Patient was tilted upright at an angle of 70 per protocol No change in the blood pressure Mild increase in the heart rate up to 92 beats a minute Thereafter remained in the 90s When she was laid supine heart rate came down to 59 beats a minute Impression Orthostatic intolerance, mild, asymptomatic Normal 12-lead EKG Suggest Stop fish oil
== END 2021-02-12 10:50 | disposition home or self-care (01) ==
LOC: CATHEP 07:53
PROVIDERS: ATTEND Internal Medicine Clinical Cardiac Electrophysiology
DX: R00.2 Palpitations (principal); R55 Syncope and collapse; E78.5 Hyperlipidemia, unspecified; Z82.49 Family history of ischemic heart disease and other diseases of the circulatory system
CPT/HCPCS: 81025; 93660

== ENCOUNTER → 2021-06-08 | Outpatient (CLI) | payer OTHER ==
--- NOTE | 2021-06-08 13:35 | MM ---
Reason for exam: screening (asymptomatic). Last mammogram was performed 1 year and 1 month ago. History: Taking hormonal contraceptives for 25 years. Physical Findings: A clinical breast exam by your physician is recommended on an annual basis and results should be correlated with mammographic findings. MG 3D Screening Mammo W/Cad Bilateral CC and MLO view(s) were taken. Prior study comparison: May 15, 2020, bilateral MG 3d screening mammo w/cad. March 23, 2019, bilateral MG 3d diag mammo w/cad [facility]. The breast tissue is extremely dense which could obscure a lesion on mammography. There is no discrete abnormality. ASSESSMENT: Negative, BI-RAD 1 RECOMMENDATION: Routine screening mammogram of both breasts in 1 year.
== END | disposition home or self-care (01) ==
LOC: RADMAMWWP 07:57
PROVIDERS: ATTEND Obstetrics & Gynecology
DX: Z12.31 Encounter for screening mammogram for malignant neoplasm of breast (principal)
CPT/HCPCS: 77063; 77067

== ENCOUNTER → 2022-05-05 | Outpatient (CLI) | payer OTHER ==
--- NOTE | 2022-05-05 17:54 | MR ---
EXAMINATION TYPE: MR brain wo con DATE OF EXAM: 05/05/2022 COMPARISON: NONE HISTORY: Migraines. TECHNIQUE: Multiplanar, multisequence imaging of the brain and brainstem is performed without IV cont rast. FINDINGS: Diffusion weighted images demonstrate no evidence of a recent infarct or other diffusion abnormality. There is no extraaxial fluid collection or significant white matter signal abnormality. The ventricu lar system and cisternal spaces are normal in size and appearance. The brain volume is age appropria te. T2 Star weighted images show no suspicious intraparenchymal blood product. Midline structures demonstrate normal morphology. The craniocervical junction appears within normal limits. Normal vascular flow voids are present. The visualized sinuses are clear and the globes are i ntact. IMPRESSION: Source of patient's migraine headaches not identified.
== END | disposition home or self-care (01) ==
LOC: RADMRIMAIN 16:19
PROVIDERS: ATTEND Family Medicine
DX: G43.009 Migraine without aura, not intractable, without status migrainosus (principal)
CPT/HCPCS: 70551

== ENCOUNTER → 2022-06-09 | Outpatient (CLI) | payer OTHER ==
--- NOTE | 2022-06-10 08:30 | MM ---
Reason for Exam: Screening (asymptomatic). Last screening mammogram was performed 12 month(s) ago. Patient History: Menarche at age 16. First Full-Term at age 25. Patient has history of breast feeding. Currently using Hormonal Contraceptives, for 25 years. Risk Values: Alma 5 year model risk: 0.6%. NCI Lifetime model risk: 8.0%. Prior Study Comparison: 03/23/2019 Bilateral Diagnostic Mammogram, [facility]. 05/15/2020 Bilateral Screening Mammogram, [facility]. 06/08/2021 Bilateral Screening Mammogram, [facility]. Tissue Density: The breast tissue is heterogeneously dense. This may lower the sensitivity of mammography. Findings: Analyzed By CAD. There is no suspicious group of microcalcifications or new suspicious mass in either breast. Overall Assessment: Negative, BI-RAD 1 Management: Screening Mammogram of both breasts in 1 year. A clinical breast exam by your physician is recommended on an annual basis and results should be correlated with mammographic findings. [facility] will attempt to contact patient to return for supplemental views and ultrasound if indicated. Electronically signed and approved by: Paul Sandoval DO
== END | disposition home or self-care (01) ==
LOC: RADMAMWWP 07:37
PROVIDERS: ATTEND Obstetrics & Gynecology
DX: Z12.31 Encounter for screening mammogram for malignant neoplasm of breast (principal)
CPT/HCPCS: 77063; 77067

== ENCOUNTER → 2023-06-28 | Outpatient (CLI) | payer OTHER ==
--- NOTE | 2023-06-30 08:20 | MM ---
Reason for Exam: Screening (asymptomatic). Last mammogram was performed 1 year(s) and 1 month(s) ago. Patient History: Menarche at age 16. First Full-Term at age 25. Patient has history of breast feeding. Currently using Hormonal Contraceptives, for 25 years. Last menstrual period: Risk Values: Alma 5 year model risk: 0.7%. NCI Lifetime model risk: 7.9%. Prior Study Comparison: 05/15/2020 Bilateral Screening Mammogram, [facility]. 06/08/2021 Bilateral Screening Mammogram, [facility]. 06/09/2022 Bilateral MG 3D screening mammo w/cad, [facility]. Tissue Density: The breast tissue is heterogeneously dense. This may lower the sensitivity of mammography. Findings: Analyzed By CAD. There is no suspicious group of microcalcifications or new suspicious mass in either breast. Overall Assessment: Negative, BI-RAD 1 Management: Screening Mammogram of both breasts in 1 year. . Patient should continue monthly self-breast exams. A clinical breast exam by your physician is recommended on an annual basis. This exam should not preclude additional follow-up of suspicious palpable abnormalities. Note on Alma scores and lifetime risk: 1. A Alma score greater than 3% is considered moderate risk. If this is the case, consider specialist referral to assess eligibility for a risk reducing agent. 2. If overall lifetime risk for the development of breast cancer is 20% or higher, the patient may qualify for future screening with alternating mammogram and breast MRI. Electronically signed and approved by: Waylon Whitlock M.D. Radiologis
== END | disposition home or self-care (01) ==
LOC: RADMAMWWP 11:17
PROVIDERS: ATTEND Obstetrics & Gynecology
DX: Z12.31 Encounter for screening mammogram for malignant neoplasm of breast (principal)
CPT/HCPCS: 77063; 77067

== ENCOUNTER 2024-11-27 09:21 | Day surgery (SDC) | payer OTHER ==
[2024-11-27 09:44] VITALS: TEMP 97.4
[2024-11-27] MEDS: LACTATED RINGERS 1,000 ML IV SCH (09:58)
[2024-11-27] MEDS: IV FLUID CONTINUATION 1,000 ML IV ONE (09:59)
[2024-11-27] MEDS ORDERED: PROPOFOL 10 MG/ML 20 ML VIAL IV ONE (10:07)
--- NOTE | 2024-11-27 10:16 | P.GSHP ---
History of Present Illness H&P Date: 11/27/24 Chief Complaint: Colon cancer screening 49-year-old female here for colonoscopy. Last colonoscopy 10 years ago. No bowel complaints. No family history of colon cancer. Past Medical History Past Medical History: Chest Pain / Angina, GERD/Reflux, Hyperlipidemia Additional Past Medical History / Comment(s): HX BLEEDING FROM RECTUM., hx polyps. wore heart monitor in the past for chest pain -r/t anxiety.hx migraines. History of Any Multi-Drug Resistant Organisms: None Reported Past Surgical History: Adenoidectomy, Appendectomy, Tonsillectomy Additional Past Surgical History / Comment(s): LAPAROTOMY; LAPAROSCOPIES; colonoscopy and EGD 11/19/13, Past Anesthesia/Blood Transfusion Reactions: No Reported Reaction, Motion Sickness Smoking Status: Never smoker - Past Family History Father Family Medical History: Hyperlipidemia Mother Family Medical History: Hyperlipidemia Sister(s) Family Medical History: CVA/TIA Additional Family Medical History / Comment(s): MS Medications and Allergies Home Medications Medication Instructions Recorded Confirmed Type Atorvastatin Calcium [Lipitor] 20 mg PO HS 11/19/13 11/27/24 History Ascorbic Acid [Vitamin C] 1,000 mg PO HS 11/27/19 11/27/24 History Loratadine 10 mg PO HS 11/27/19 11/27/24 History Topiramate [Topamax] 50 mg PO HS 11/27/19 11/27/24 History Pantoprazole [Protonix] 40 mg PO HS 02/09/21 11/27/24 History Unk Biotin 1 tab PO DAILY 11/22/24 11/27/24 History Drospirenone [Slynd] 1 tab PO HS 11/22/24 11/27/24 History Unk Multi Vitamin 1 tab PO DAILY 11/22/24 11/27/24 History Unk Vitamin B12 1 tab PO DAILY 11/22/24 11/27/24 History Allergies Allergy/AdvReac Type Severity Reaction Status Date / Time cefuroxime Allergy Anaphylaxis Verified 11/27/24 09:40 guaifenesin [From Mucinex] Allergy Anaphylaxis Verified 11/27/24 09:40 minocycline [Minocycline] Allergy Anaphylaxis Verified 11/27/24 09:40 mucus relief Allergy Anaphylaxis Uncoded 11/27/24 09:40 Surgical - Exam Vital Signs Temp Pulse Resp BP Pulse Ox 97.4 F L 67 16 107/73 100 11/27/24 09:43 11/27/24 09:43 11/27/24 09:43 11/27/24 09:43 11/27/24 09:43 Physical exam: General: Well-developed, well-nourished HEENT: Normocephalic, sclerae nonicteric Abdomen: Nontender, nondistended Extremities: No edema Neuro: Alert and oriented Assessment and Plan (1) Colon cancer screening Narrative/Plan: Will proceed with colonoscopy at this time. Current Visit: Yes Status: Acute Code(s): Z12.11 - ENCOUNTER FOR SCREENING FOR MALIGNANT NEOPLASM OF COLON SNOMED Code(s): 911937647
--- NOTE | 2024-11-27 10:27 | P.PCN ---
Date of Procedure: 11/27/24 Procedure(s) Performed: PREOPERATIVE DIAGNOSIS: Colon cancer screening POSTOPERATIVE DIAGNOSIS: Normal exam PROCEDURE: Colonoscopy ANESTHESIA: MAC SURGEON: Naveen Mcclure M.D. SPECIMENS: None ENDOSCOPIC PROCEDURE: The patient was placed on the endoscopy table in the left decubitus position. The Olympus colonoscope was inserted into the anus and passed under direct visualization to the base of the cecum. The appendiceal orifice was visualized. From that point the scope was slowly withdrawn inspecti ng all surfaces carefully. There were no neoplastic inflammatory or polypoid lesions throughout the cecum, ascending, transverse, descending, sigmoid and rectum. There was no visible diverticulosis noted. There was significant tortuosity however. Digital rectal examination was normal. The patient was taken to the recovery room in stable condition per anesthesia guidelines. RECOMMENDATIONS: Resume diet. Repeat colonoscopy 10 years
[2024-11-27 10:47] VITALS: BP 94/62; PULSE 59; RESP 16
== END 2024-11-27 11:07 | disposition home or self-care (01) ==
LOC: ORWHC2ENDO 09:21
PROVIDERS: ATTEND Surgery
DX: Z12.11 Encounter for screening for malignant neoplasm of colon (principal); E78.5 Hyperlipidemia, unspecified; Z88.1 Allergy status to other antibiotic agents; Z90.49 Acquired absence of other specified parts of digestive tract; Z90.89 Acquired absence of other organs; Z79.899 Other long term (current) drug therapy
CPT/HCPCS: 81025; 45378; J2704